=== PATIENT | female | born 1970 ===

== ENCOUNTER 2016-11-26 09:34 | Day surgery (SDC) | payer OTHER ==
[2016-11-26] MEDS ORDERED: Lactated Ringer's 500 ML IV ONE (10:37)
[2016-11-26 10:53] VITALS: O2SAT 100
[2016-11-26] MEDS ORDERED: Propofol 10 mg/ml Inj (20 ML) ONE (11:17)
[2016-11-26 12:01] VITALS: TEMP 97
[2016-11-26 12:07] VITALS: BP 118/67; PULSE 72; RESP 14
== END 2016-11-26 13:12 | disposition home or self-care (01) ==
LOC: H.ENDO 09:34
PROVIDERS: ATTEND Internal Medicine Gastroenterology
DX: K27.7 Chronic peptic ulcer, site unspecified, without hemorrhage or perforation (principal); Z87.19 Personal history of other diseases of the digestive system; D64.9 Anemia, unspecified; K31.9 Disease of stomach and duodenum, unspecified

== ENCOUNTER 2017-03-01 12:07 | Emergency (ER) | payer SELFPAY ==
[2017-03-01 12:29] VITALS: BP 106/70; PULSE 82; RESP 16; TEMP 98.2; O2SAT 99
--- NOTE | 2017-03-01 12:57 | ED PDOC ---
HPI: CCC, URI, Sore Throat Time Seen by Provider: 03/01/17 12:37 Chief Complaint (Nursing): Cough, Cold, Congestion Chief Complaint (Provider): cough, cold, congestion History Per: Patient History/Exam Limitations: no limitations Have you had recent travel within the past 21 days to any of the following countries: [place], [place], [place] or [place]?: No Onset/Duration Of Symptoms: Days (5) Current Symptoms Are (Timing): Still Present Location Of Pain: Throat. denies: Diffuse Myalgias Associated Symptoms: Sore Throat, Cough, Other (chest discomfort). denies: Fever, Chills, Sputum Severity: Moderate Additional History Per: Patient Additional Complaint(s): The patient is a 46yo female, PMHx of gastritis, cholecystectomy, presents to the ED for evaluation of cough, cold and congestion with associated chest discomfort present for the past 5 days. The pt reports her cough was productive with yellow sputum but is dry right now. She denies any fever, chills, bodyaches , known sick contacts or recent travels. Pt denies any other medical complaints. Past Medical History Reviewed: Historical Data, Nursing Documentation, Vital Signs Vital Signs: Last Vital Signs Temp 98.2 F 03/01/17 12:27 Pulse 82 03/01/17 12:27 Resp 16 03/01/17 12:27 BP 106/70 03/01/17 12:27 Pulse Ox 99 03/01/17 13:42 - Medical History PMH: Anemia Denies: Chronic Kidney Disease - Surgical History Surgical History: Cholecystectomy, Endoscopy, - Family History Family History: States: Unknown Family Hx - Living Arrangements Living Arrangements: With Family - Social History Current smoker - smoking cessation education provided: No Alcohol: None Drugs: Denies - Home Medications Home Medications: Ambulatory Orders Medication Instructions Recorded Omeprazole 20 mg PO DAILY 11/26/16 Benzonatate [Tessalon Perles] 100 mg PO BID #20 sgl 03/01/17 Guaifenesin [Mucinex] 1,200 mg PO BID #14 ter 03/01/17 - Allergies Allergies/Adverse Reactions: Allergies Allergy/AdvReac Type Severity Reaction Status Date / Time No Known Allergies Allergy Verified 03/01/17 12:27 Review of Systems ROS Statement: Except As Marked, All Systems Reviewed And Found Negative Constitutional: Negative for: Fever, Chills, Other (bodyaches) ENT: Positive for: Throat Pain Cardiovascular: Positive for: Other (chest discomfort) Respiratory: Positive for: Cough. Negative for: Sputum Physical Exam - Reviewed Nursing Documentation Reviewed: Yes Vital Signs Reviewed: Yes - Physical Exam Appears: Positive for: Well, Non-toxic, No Acute Distress Head Exam: Positive for: ATRAUMATIC, NORMAL INSPECTION, NORMOCEPHALIC Skin: Positive for: Normal Color, Warm, DRY Eye Exam: Positive for: Normal appearance ENT: Positive for: Normal ENT Inspection, TM Is/Are (normal b/l). Negative for : Pharyngeal Erythema, Tonsillar Exudate, Tonsillar Swelling Neck: Positive for: Normal, Supple Cardiovascular/Chest: Positive for: Regular Rate, Rhythm Respiratory: Positive for: Decreased Breath Sounds (mild decreased breath sounds right lung) Gastrointestinal/Abdominal: Positive for: Normal Exam Extremity: Positive for: Normal ROM. Negative for: Deformity, Swelling Neurologic/Psych: Positive for: Alert, Oriented - ECG O2 Sat by Pulse Oximetry: 99 (RA) Pulse Ox Interpretation: Normal - Radiology X-Ray: Interpreted by Me X-Ray Interpretation: No Acute Disease Medical Decision Making Medical Decision Making: Time: 1245 Impression: Cough/URI likely viral Plan: -- CXR -- Reassess pt will be d/c on mucinex, tessalon perles and advised to have pmd f/u with supportive care. VS stable, pt well appearing. Scribe Attestation: Documented by Regina Lucio acting as a scribe for DEBBI Guy Provider Attestation: All medical record entries made by the Scribe were at my direction and personally dictated by me. I have reviewed the chart and agree that the record accurately reflects my personal performance of the history, physical exam, medical decision making, and the department course for this patient. I have also personally directed, reviewed, and agree with the discharge instructions and disposition. Disposition - Clinical Impression Clinical Impression: Common cold, Chest congestion - Patient ED Disposition Is Patient to be Admitted: No Counseled Patient/Family Regarding: Studies Performed, Diagnosis, Need For Followup, Rx Given - Disposition Referrals: [facility] [Outside] Disposition: Routine/Home Disposition Time: 13:41 Condition: STABLE Prescriptions: Benzonatate [Tessalon Perles] 100 mg PO BID #20 sgl Guaifenesin [Mucinex] 1,200 mg PO BID #14 ter Instructions: Upper Respiratory Infection (ED) Print Language: NEPALI
--- NOTE | 2017-03-01 18:09 | RAD ---
HISTORY: cough COMPARISON: Comparison chest dated 09/16/2016 TECHNIQUE: Chest PA and lateral FINDINGS: LUNGS: No focal consolidation. Slightly increased coarse interstitial markings ; rule out sequela of reactive/ inflammatory airway disease or viral illness. PLEURA: No significant pleural effusion identified. No pneumothorax apparent. CARDIOVASCULAR: Normal. OSSEOUS STRUCTURES: Mild scoliotic deformity of the lower thoracic and upper lumbar regions. VISUALIZED UPPER ABDOMEN: Status post cholecystectomy with metallic devin surgical clips right upper quadrant of the abdomen. OTHER FINDINGS: None. IMPRESSION: No focal consolidation. Slightly increased coarse interstitial markings ; rule out sequela of reactive/ inflammatory airway disease or viral illness.
== END 2017-03-01 14:08 | disposition home or self-care (01) ==
LOC: H.ER 12:07
DX: R09.89 Other specified symptoms and signs involving the circulatory and respiratory systems (principal); J00 Acute nasopharyngitis [common cold]; J02.9 Acute pharyngitis, unspecified

== ENCOUNTER 2017-04-09 10:51 | Emergency (ER) | payer SELFPAY ==
[2017-04-09 10:57] VITALS: BP 114/70; PULSE 78; TEMP 97; O2SAT 99
[2017-04-09 10:58] VITALS: BMI 23.1
--- NOTE | 2017-04-09 11:52 | ED PDOC ---
HPI: General Adult Time Seen by Provider: 04/09/17 11:35 Chief Complaint (Nursing): Female Genitourinary History Per: Patient Additional Complaint(s): Pt. for the past 3 days she's had dysuria, suprapubic pain, and urinary frequency. Denies fever, N/V, flank pain, back pain. Past Medical History Vital Signs: Last Vital Signs Temp 97 F L 04/09/17 10:55 Pulse 78 04/09/17 10:55 Resp BP 114/70 04/09/17 10:55 Pulse Ox 99 04/09/17 11:52 - Medical History PMH: Anemia Denies: Chronic Kidney Disease - Surgical History Surgical History: Cholecystectomy, Endoscopy, - Family History Family History: States: Unknown Family Hx - Home Medications Home Medications: Ambulatory Orders Medication Instructions Recorded Omeprazole 20 mg PO DAILY 11/26/16 Benzonatate [Tessalon Perles] 100 mg PO BID #20 sgl 03/01/17 Guaifenesin [Mucinex] 1,200 mg PO BID #14 ter 03/01/17 Nitrofurantoin Macrocrystals 100 mg PO BID #14 cap 04/09/17 [Macrobid] - Allergies Allergies/Adverse Reactions: Allergies Allergy/AdvReac Type Severity Reaction Status Date / Time No Known Allergies Allergy Verified 04/09/17 11:33 Review of Systems ROS Statement: Except As Marked, All Systems Reviewed And Found Negative Genitourinary Female: Positive for: Dysuria, Frequency Physical Exam - Physical Exam Appears: Positive for: Well, Non-toxic, No Acute Distress Skin: Positive for: Normal Color, Warm. Negative for: Rash Gastrointestinal/Abdominal: Positive for: Normal Exam, Bowel Sounds, Soft. Negative for: Tenderness Back: Positive for: Normal Inspection. Negative for: L CVA Tenderness, R CVA Tenderness Neurologic/Psych: Positive for: Alert, Oriented - Laboratory Results Urine POC: Negative Urine dip results: Positive for: Leukocyte Esterase (small), Blood (large). Negative for: Nitrate, Ketones, Glucose, Bilirubin, Protein - ECG O2 Sat by Pulse Oximetry: 99 Disposition - Clinical Impression Clinical Impression: Urinary tract infection - Patient ED Disposition Is Patient to be Admitted: No - Disposition Referrals: [facility] [Outside] Disposition: Routine/Home Disposition Time: 12:04 Condition: STABLE Prescriptions: Nitrofurantoin Macrocrystals [Macrobid] 100 mg PO BID #14 cap Instructions: Urinary Tract Infection in Women (ED) Forms: [facility] (Bots[place]an) Print Language: [place]
== END 2017-04-09 14:00 | disposition home or self-care (01) ==
LOC: H.ER 10:51
DX: N39.0 Urinary tract infection, site not specified (principal)

== ENCOUNTER 2017-04-15 22:27 | Inpatient (IN) | payer SELFPAY ==
[2017-04-15 22:27] VITALS: BMI 23.1
[2017-04-15] MEDS ORDERED: Sodium Chloride 0.9% 1,000 ML IV STA (23:19)
[2017-04-15 23:51] LABS: BASO # 0.1 K/uL (0.0-0.2); BASO % 1.2 % (0.0-2.0); EOS # 0.2 K/uL (0.0-0.7); EOS % 2.6 % (0.0-4.0); LYMPH # 2.3 K/uL (1.0-4.3); LYMPH % 36.3 % (20.0-40.0); MEAN CORPUSCULAR HEMOGLOBIN 27.5 pg (27.0-31.0); MEAN CORPUSCULAR HGB CONC 33.2 g/dL (33.0-37.0); MEAN PLATELET VOLUME 7.8 fl (7.2-11.7); MONO # 0.6 K/uL (0.0-0.8); MONO % 9.4 % (0.0-10.0); NEUT # 3.2 K/uL (1.8-7.0); NEUT % 50.5 % (50.0-75.0); RBC 3.98 Mil/uL (3.80-5.20); RED CELL DISTRIBUTION WIDTH 14.7 % (11.5-14.5); WHITE BLOOD COUNT 6.3 K/uL (4.8-10.8)
--- NOTE | 2017-04-15 23:53 | ED PDOC ---
HPI: Abdomen Time Seen by Provider: 04/15/17 23:00 Chief Complaint (Nursing): Female Genitourinary Chief Complaint (Provider): Female Genitourinary History Per: Patient History/Exam Limitations: no limitations Onset/Duration Of Symptoms: Days Outside of [place] travel?: No Current Symptoms Are (Timing): Still Present Severity: Mild Location Of Pain/Discomfort: RLQ Associated Symptoms: denies: Fever, Nausea, Vomiting, Diarrhea, Constipation Additional Complaint(s): 46 y/o female patient presenting to the ED with lower abdominal pain. Patient was seen here in the ED a few days ago for dysuria and pain; was diagnosed with a UTI and sent home with Macrobid. The patient reports her last dosage is tomorrow but states she has been having constant lower abdominal pain. She reports the dysuria has resolved, no hematuria or menses, no fever, vomiting, nausea, constipation or diarrhea. Her past surgical history includes a caesarean and a cholecystectomy. Past Medical History Reviewed: Historical Data, Nursing Documentation, Vital Signs Vital Signs: Last Vital Signs Temp 97.8 F 04/15/17 22:52 Pulse 70 04/15/17 22:52 Resp 16 04/15/17 22:52 BP 129/80 04/15/17 22:52 Pulse Ox 99 04/16/17 00:07 - Medical History PMH: Anemia Denies: Chronic Kidney Disease - Surgical History Surgical History: Cholecystectomy, Endoscopy, - Family History Family History: States: Unknown Family Hx - Home Medications Home Medications: Ambulatory Orders Medication Instructions Recorded Omeprazole 20 mg PO DAILY 11/26/16 Benzonatate [Tessalon Perles] 100 mg PO BID #20 sgl 03/01/17 Guaifenesin [Mucinex] 1,200 mg PO BID #14 ter 03/01/17 Nitrofurantoin Macrocrystals 100 mg PO BID #14 cap 04/09/17 [Macrobid] - Allergies Allergies/Adverse Reactions: Allergies Allergy/AdvReac Type Severity Reaction Status Date / Time No Known Allergies Allergy Verified 04/09/17 11:33 Review of Systems ROS Statement: Except As Marked, All Systems Reviewed And Found Negative Constitutional: Negative for: Fever Gastrointestinal: Positive for: Abdominal Pain ((+)Constant ), Other ((-)Menses) . Negative for: Nausea, Vomiting, Diarrhea, Constipation Genitourinary Female: Negative for: Dysuria (Resolved), Hematuria Physical Exam - Reviewed Nursing Documentation Reviewed: Yes Vital Signs Reviewed: Yes - Physical Exam Appears: Positive for: Non-toxic, No Acute Distress Head Exam: Positive for: ATRAUMATIC, NORMAL INSPECTION, NORMOCEPHALIC Skin: Positive for: Normal Color, Warm, Dry Neck: Positive for: Normal, Painless ROM, Supple Cardiovascular/Chest: Positive for: Regular Rate, Rhythm. Negative for: Murmur Respiratory: Positive for: Normal Breath Sounds. Negative for: Respiratory Distress Gastrointestinal/Abdominal: Positive for: Tenderness ((+)RLQ Tenderness) Extremity: Positive for: Normal ROM Neurologic/Psych: Positive for: Alert, Oriented. Negative for: Motor/Sensory Deficits - Laboratory Results Result Diagrams: 04/15/17 23:48 04/15/17 23:48 Urine POC: Negative Urine dip results: Positive for: Blood (Moderate). Negative for: Leukocyte Esterase, Nitrate, Ketones, Glucose, Bilirubin, Protein - ECG O2 Sat by Pulse Oximetry: 99 (RA) Pulse Ox Interpretation: Normal Medical Decision Making Medical Decision Making: Time: 2315 Initial impression: Initial plan: --ABD & PELVIS IV --CMP --ED URINE DIPSTICK --ED URINE --MORPHINE 2MG IV --SODIUM CHLORIDE 1,000 ML IV --URINALYSIS --PELVIS/TRANSVAG Ultrasound Scribe Attestation: Documented by Valeria Ibarra, acting as a scribe for Carmencita Medina MD. Scribe Attestation: All medical record entries made by the Scribe were at my direction and personally dictated by me. I have reviewed the chart and agree that the record accurately reflects my personal performance of the history, physical exam, medical decision making, and the department course for this patient. I have also personally directed, reviewed, and agree with the discharge instructions and disposition. Disposition - Disposition Forms: [employer] (Libyan)
[2017-04-15 23:56] LABS: SQUAMOUS EPITHIAL 2 /hpf (0-5); URINE BILIRUBIN NEGATIVE (NEGATIVE); URINE BLOOD MODERATE (NEGATIVE); URINE CLARITY SLIGHTY-CLOUDY (Clear); URINE COLOR YELLOW (YELLOW); URINE GLUCOSE (UA) NEG (Normal); URINE LEUKOCYTE ESTERASE NEG Leu/uL (Negative); URINE NITRATE NEGATIVE (NEGATIVE); URINE PROTEIN NEGATIVE (NEGATIVE); URINE UROBILINOGEN 0.2-1.0 mg/dL (0.2-1.0)
[2017-04-16 00:02] LABS: ALB/GLOB RATIO 1.2 (1.0-2.1); ALBUMIN 4.2 g/dL (3.5-5.0); ALT/SGPT 24 U/L (9-52); AST/SGOT 24 U/L (14-36); BLOOD UREA NITROGEN 13 mg/dl (7-17); CALCIUM 9.3 mg/dL (8.4-10.2); GFR AFRICAN-AMERICAN > 60; GFR NON-AFRICAN AMERICAN > 60
--- NOTE | 2017-04-16 00:21 | ED PDOC ---
- Laboratory Results Result Diagrams: 04/15/17 23:48 04/15/17 23:48 Urine POC: Negative - ECG O2 Sat by Pulse Oximetry: 99 (RA) Pulse Ox Interpretation: Normal Medical Decision Making Medical Decision Making: Time: 0000 Initial plan: --Patient signed out to me by Dr. Medina. Pending CT Scan. --0124: EXAM: CT Abdomen and Pelvis With Intravenous Contrast CLINICAL HISTORY: 46 years old, female; Pain; Abdominal pain; Localized; Right lower quadrant (rlq ); Prior surgery; Surgery date: 6+ months; Surgery type: Cholecystectomy. C- section; Additional info: Rlq pain TECHNIQUE: Axial computed tomography images of the abdomen and pelvis with intravenous contrast. This CT exam was performed using one or more of the following dose reduction techniques: automated exposure control, adjustment of the mA and/or kV according to patient size, and/or use of iterative reconstruction technique. Coronal and sagittal reformatted images were created and reviewed. CONTRAST: 90 mL of [id number] administered intravenously. COMPARISON: No relevant prior studies available. Reference is made to a transvaginal ultrasound performed 09/26/16 FINDINGS: Lower thorax: The bilateral lung bases are clear. ABDOMEN: Liver: No acute findings. Gallbladder and bile ducts: The gallbladder is decompressed. No calcified stones. No significant intra- or extrahepatic biliary ductal dilation. Pancreas: Enhances homogeneously. No ductal dilation. No discrete mass. Spleen: No acute findings. Adrenals: No acute findings. Kidneys and ureters: Right sided hydroureteronephrosis extending to the distal right ureter where a 6mm stone is identified. No abnormalities detected within the left kidney. PELVIS: Bladder: No acute findings. Reproductive: Decreased attenuation within the lower uterine segment possibly representing a submucosal fibroid. This is an interval change from ultrasound examination performed 09/26/2016. Appendix: The air filled appendix is of normal caliber (series 2, image 56). ABDOMEN and PELVIS: Stomach and bowel: No obstruction. No mucosal thickening. Peritoneum: No significant fluid collection. No free air. Lymph nodes: No pathologically enlarged lymph nodes. Vasculature: Unremarkable. Bones: No acute fracture. IMPRESSION: Right sided hydroureteronephrosis secondary to a 6 mm stone in the distal right ureter. --[id number]: Patient has persistent pain; given history of recent UTI. CT shows 6mm calculus findings of right-sided hydroureteronephrosis obstructive renall calculus. --Case discussed with Dr. Hong resident home economics expert. Scribe Attestation: Documented by Valeria Ibarra, acting as a scribe for Barrington Ackerman MD. Scribe Attestation: All medical record entries made by the Scribe were at my direction and personally dictated by me. I have reviewed the chart and agree that the record accurately reflects my personal performance of the history, physical exam, medical decision making, and the department course for this patient. I have also personally directed, reviewed, and agree with the discharge instructions and disposition. Disposition - Clinical Impression Clinical Impression: Pyelonephritis, Hydronephrosis, Ureteral calculus - POA Present On Arrival: None - Disposition Disposition: Admitted as In-Patient Disposition Time: 02:00
[2017-04-16] MEDS ORDERED: Iohexol 300 100 ML IJ ONE (00:27)
[2017-04-16] MEDS ORDERED: Sodium Chloride 0.9% 50 ML IV ONE (00:27)
--- NOTE | 2017-04-16 01:24 | CT ---
EXAM: CT Abdomen and Pelvis With Intravenous Contrast CLINICAL HISTORY: 46 years old, female; Pain; Abdominal pain; Localized; Right lower quadrant (rlq); Prior surgery; Surgery date: 6+ months; Surgery type: Cholecystectomy. ; Additional info: Rlq pain TECHNIQUE: Axial computed tomography images of the abdomen and pelvis with intravenous contrast. This CT exam was performed using one or more of the following dose reduction techniques: automated exposure control, adjustment of the mA and/or kV according to patient size, and/or use of iterative reconstruction technique. Coronal and sagittal reformatted images were created and reviewed. CONTRAST: 90 mL of [id number] administered intravenously. COMPARISON: No relevant prior studies available. Reference is made to a transvaginal ultrasound performed 09/26/16 FINDINGS: Lower thorax: The bilateral lung bases are clear. ABDOMEN: Liver: No acute findings. Gallbladder and bile ducts: The gallbladder is decompressed. No calcified stones. No significant intra- or extrahepatic biliary ductal dilation. Pancreas: Enhances homogeneously. No ductal dilation. No discrete mass. Spleen: No acute findings. Adrenals: No acute findings. Kidneys and ureters: Right sided hydroureteronephrosis extending to the distal right ureter where a 6 mm stone is identified. No abnormalities detected within the left kidney. PELVIS: Bladder: No acute findings. Reproductive: Decreased attenuation within the lower uterine segment possibly representing a submucosal fibroid. This is an interval change from ultrasound examination performed 09/26/2016. Appendix: The air filled appendix is of normal caliber (series 2, image 56). ABDOMEN and PELVIS: Stomach and bowel: No obstruction. No mucosal thickening. Peritoneum: No significant fluid collection. No free air. Lymph nodes: No pathologically enlarged lymph nodes. Vasculature: Unremarkable. Bones: No acute fracture. IMPRESSION: Right sided hydroureteronephrosis secondary to a 6 mm stone in the distal right ureter.
[2017-04-16] MEDS ORDERED: cefTRIAXone (Rocephin) 1 gm Inj ONE (02:51)
--- NOTE | 2017-04-16 03:31 | CP.PCM.HP ---
History of Present Illness - History of Present Illness History of Present Illness: 46 y/o F with PMH including peptic ulcer disease presents with a 1 week history of right flank pain. Patient was initially evaluated in ED 1 week ago and was prescribed empiric macrobid for presumed UTI. Since then, patient has reported persistent intermittent right sided flank pain which radiates to the groin, is "pressure" like in quality, 4-8/10 intensity and aggravated by movement. Patient has completed 7 days of macrobid and has been taking 200mg-400mg of motrin with no improvement. She decided to present to ED today due to poorly controlled pain and new onset nausea. CT abdomen performed in ED detected a 6mm stone in the right ureter. Patient denies fevers, chills, chest pain, sob, vomiting, diarrhea, dysuria, urinary urgency/frequency or dysmenorrhea. PMD: Dr Friedman, 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 Hx: Regular monthly menstrual period lasting 6-7 days, LMP: currently on day 6-7 Present on Admission - Present on Admission Any Indicators Present on Admission: No History of DVT/PE: No History of Uncontrolled Diabetes: No Urinary Catheter: No Decubitus Ulcer Present: No Review of Systems - Review of Systems All systems: reviewed and no additional remarkable complaints except Past Patient History - Past Medical History & Family History Past Medical History?: Yes - Past Social History Smoking Status: Never Smoked Alcohol: None Drugs: Denies Home Situation {Lives}: With Family - CARDIAC Hx Cardiac Disorders: No - PULMONARY Hx Respiratory Disorders: No - NEUROLOGICAL Hx Neurological Disorder: No - HEENT Hx HEENT Problems: No - RENAL Hx Chronic Kidney Disease: No - ENDOCRINE/METABOLIC Hx Endocrine Disorders: No - HEMATOLOGICAL/ONCOLOGICAL Hx Anemia: Yes - INTEGUMENTARY Hx Dermatological Problems: No - MUSCULOSKELETAL/RHEUMATOLOGICAL Hx Musculoskeletal Disorders: No - GASTROINTESTINAL Hx Gastrointestinal Disorders: Yes (PUD) - GENITOURINARY/GYNECOLOGICAL Hx Genitourinary Disorders: No - PSYCHIATRIC Hx Psychophysiologic Disorder: No Hx Emotional Abuse: No Hx Physical Abuse: No Hx Substance Use: No - SURGICAL HISTORY Hx Cholecystectomy: Yes (2012) - ANESTHESIA Hx Anesthesia: Yes Hx Anesthesia Reactions: No Hx Malignant Hyperthermia: No Meds Allergies/Adverse Reactions: Allergies Allergy/AdvReac Type Severity Reaction Status Date / Time No Known Allergies Allergy Verified 04/09/17 11:33 Physical Exam - Constitutional Appears: Non-toxic, No Acute Distress - Head Exam Head Exam: ATRAUMATIC, NORMAL INSPECTION, NORMOCEPHALIC - Eye Exam Eye Exam: EOMI, PERRL - ENT Exam ENT Exam: Mucous Membranes Moist - Respiratory Exam Respiratory Exam: Clear to Auscultation Bilateral, NORMAL BREATHING PATTERN. absent: Rales, Rhonchi, Wheezes, Respiratory Distress - Cardiovascular Exam Cardiovascular Exam: REGULAR RHYTHM, RRR, +S1, +S2. absent: Systolic Murmur - GI/Abdominal Exam GI & Abdominal Exam: Normal Bowel Sounds, Soft, Tenderness (right flank/RLQ tenderness). absent: Distended, Guarding, Rebound - Extremities Exam Extremities exam: Positive for: normal capillary refill. Negative for: calf tenderness, pedal edema - Back Exam Back exam: absent: CVA tenderness (L), CVA tenderness (R) - Neurological Exam Neurological exam: Alert, CN II-XII Intact, Oriented x3 - Psychiatric Exam Psychiatric exam: Normal Affect, Normal Mood - Skin Skin Exam: Dry, Warm Results - Vital Signs Recent Vital Signs: Last Vital Signs Temp 97.8 F 04/15/17 22:52 Pulse 70 04/15/17 22:52 Resp 16 04/15/17 22:52 BP 129/80 04/15/17 22:52 Pulse Ox 99 04/16/17 03:05 - Labs Result Diagrams: 04/15/17 23:48 04/15/17 23:48 Assessment & Plan - Assessment and Plan (Free Text) Assessment: 46 y/o F with PMH including peptic ulcer disease presented to ED with a 1 week history of right flank pain. CT Abdomen detected a 6mm stone in the distal right ureter associated with hydroureteronephrosis. Plan: Right-sided flank pain -Etiology likely secondary to ureterolithiasis. -CT Abdomen detected a 6mm stone in the distal right ureter associated with hydroureteronephrosis. No signs of appendicitis noted. -Received single dose of ceftriaxone in ED -Patient afebrile. WBC WNL. -Toradol 10mg IV and morphine 2mg IV given in ED for pain control -Tamsulosin 0.8mg PO given in ED -UA detects moderate blood with no nitrites or leuk esterace -Urine culture ordered -Patient continues to experience pain, so will be admitted for pain control and further monitoring -Frankan 4mg IV Q6h PRN nausea -Toradol 30mg IV Q6h PRN mod pain -Morphine 2mg IV Q4h PRN sev pain -Medical expulsive therapy with tamsulosin 0.4mg PO daily -Strain urine for calculi Peptic ulcer disease -Patient currently asymptomatic -Taking omeprazole 20mg daily DVT Prophylaxis -SCDs for now
[2017-04-16 07:49] VITALS: RESP 20
--- NOTE | 2017-04-16 08:43 | CP.PCM.PN ---
Subjective - Date & Time of Evaluation Date of Evaluation: 04/16/17 Time of Evaluation: 06:30 - Subjective Subjective: Patient seen and examined at the bedside. States that she had severe abdominal pain last night which resolved shortly after receiving pain medication. At the moment, she currently is not complaining of abdominal pain. She denies fever, chills, burning with urination, frequent urination, flank pain, N/V/Diarrhea. Objective - Vital Signs/Intake and Output Vital Signs (last 24 hours): Temp Pulse Resp BP Pulse Ox 97.7 F 71 20 105/61 98 04/16/17 07:49 04/16/17 07:49 04/16/17 07:49 04/16/17 07:49 04/16/17 07:49 - Medications Medications: Current Medications Ketorolac Tromethamine (Toradol) 30 mg IVP Q6 PRN PRN Reason: Pain, moderate (4-7) Morphine Sulfate (Morphine) 2 mg IVP Q4 PRN PRN Reason: Pain, severe (8-10) Ondansetron HCl (Zofran Inj) 4 mg IVP Q6 PRN PRN Reason: Nausea/Vomiting Last Admin: 04/16/17 03:57 Dose: 4 mg Pantoprazole Sodium (Protonix Ec Tab) 40 mg PO DAILY HANK Tamsulosin HCl (Flomax) 0.4 mg PO DAILY HANK - Constitutional Appears: Well - ENT Exam ENT Exam: Mucous Membranes Moist - Respiratory Exam Respiratory Exam: Clear to Ausculation Bilateral. absent: Rales, Wheezes - Cardiovascular Exam Cardiovascular Exam: REGULAR RHYTHM, +S1, +S2. absent: Murmur - GI/Abdominal Exam GI & Abdominal Exam: Soft, Tenderness Additional comments: Tender to palpation in lower quadrants. Normal bowel sounds. Soft, nontender, nondistended. No sings of organomegaly. No gaurding, rigidity, or rebound tenderness. Lamar's -, No CVA - Extremities Exam Extremities Exam: absent: Pedal Edema - Back Exam Back Exam: absent: CVA tenderness (R) - Neurological Exam Neurological Exam: Alert, Awake, Oriented x3 - Psychiatric Exam Psychiatric exam: Normal Affect Assessment and Plan (1) Ureteral calculus Status: Acute - Assessment and Plan (Free Text) Assessment: Assessment: 46 y/o F with PMH including peptic ulcer disease presented to ED with a 1 week history of right flank pain. CT Abdomen detected a 6mm stone in the distal right ureter associated with hydroureteronephrosis. Plan: Right-sided flank pain -Etiology likely secondary to ureterolithiasis. -CT Abdomen detected a 6mm stone in the distal right ureter associated with hydroureteronephrosis. No signs of appendicitis noted. -Received single dose of ceftriaxone in ED -Patient afebrile. WBC WNL. -Tamsulosin 0.8mg PO given in ED -Electrolytes stable -UA detects moderate blood with no nitrites or leuk esterace. Pt is currently menstruating. UA from 09/24 also + for blood. Consider OP wrkp -Labs Ordered: UCx, Calcium, Ulytes, Uric Acid, Urine Calcium -Tamsulosin 0.4mg PO Daily for Medical expulsive therapy -Zofran 4mg IV Q6h PRN nausea -Toradol 30mg IV Q6h PRN mod pain -Morphine 2mg IV Q4h PRN sev pain -Strain urine for calculi -Urology consultation placed Plan: F/U UCx, KUB, Urology consult. Continue hydrating, medical expulsive therapy and current pain management. Encourage patient to drink fluids Peptic ulcer disease -Patient currently asymptomatic -Taking omeprazole 20mg daily DVT Prophylaxis -SCDs for now
[2017-04-16] MEDS: Pantoprazole 40 mg EC Tab PO SCH (08:50)
[2017-04-16 11:15] LABS: CALCIUM 8.6 mg/dL (8.4-10.2)
[2017-04-16] MEDS: Sodium Chloride 0.9% 1,000 ML IV SCH ×3 (12:32→22:36)
[2017-04-16 16:12] LABS: URINE CALCIUM 15.5 mg/dL
--- NOTE | 2017-04-16 16:15 | RAD ---
HISTORY: Nephrolithiasis COMPARISON: No prior. FINDINGS: BOWEL: Normal. No obstruction. No free air. BONES: Normal. OTHER FINDINGS: None. IMPRESSION: No significant or acute findings to account for/ related to the clinical presentation. Limitations of the current examination: Bowel gas overlies the expected location of both kidneys. No definite upper tract calculi identified.
--- NOTE | 2017-04-16 17:13 | US ---
HISTORY: RLQ pain COMPARISON: Transvaginal pelvic ultrasound performed 09/26/16 TECHNIQUE: Real-time transabdominal pelvic ultrasound was performed. In addition a transvaginal pelvic ultrasound was necessary to better depict pelvic anatomy. FINDINGS: UTERUS: Measures 10.1 x 4.4 x 6.4 cm. Retroverted. ENDOMETRIUM: Measures 5 mm in diameter. CERVIX: No cervical abnormality identified. RIGHT OVARY: Measures 2.0 x 1.8 x 1.7 cm. Blood flow is demonstrated. Follicles. LEFT OVARY: Measures 2.8 x 1.4 x 2.3 cm. Blood flow is demonstrated. Follicles. 4 mm echogenic focus within the left ovary, indeterminate, possibly small dermoid. FREE FLUID: No significant free fluid noted. OTHER FINDINGS: None. IMPRESSION: 4 mm echogenic focus within the left ovary, indeterminate, possibly small dermoid. Previously demonstrated echogenic endometrial foci suspected to reflect polyps are not appreciated on the current examination.
--- NOTE | 2017-04-16 20:52 | CON ---
COMPREHENSIVE UROLOGY CONSULTATION DATE: 04/16/2017 TIME OF CONSULTATION: Roughly 10:25 a.m. BRIEF HISTORY: The patient is a 46[facility] first episode of acute onset of right renal colic requiring her to come to [facility] Emergency Room. Abdominopelvic CT film showed a distal obstructing 6 mm right ureteral stone causing some hydronephrosis. The patient's pain is currently controlled on pain medication at this time. She denies any prior history of any kidney disease or kidney stone. PAST MEDICAL HISTORY: She also has no other past medical history. PAST SURGICAL HISTORY: Includes cholecystectomy and tubal ligation in the past. SOCIAL HISTORY: She has no history of any alcohol or tobacco use. ALLERGIES: SHE HAS NO KNOWN ALLERGIES TO ANY MEDICATIONS. PHYSICAL EXAMINATION GENERAL: Today, she is well-developed, well-nourished, female, currently resting comfortably. ABDOMEN: Soft, nondistended and nontender at this time. She has no CVA tenderness and no suprapubic tenderness on pain medication. HEENT: Grossly within normal limits. EXTREMITIES: She has full range of motion of both upper and lower extremities. No leg edema or calf tenderness present. LABORATORY DATA: On 04/15/2017 shows a WBC count of 6.3, hemoglobin of 11.0 and hematocrit of 33.1 with a platelet count of 256,000 indicating a mild anemia. Chemistry profile shows a sodium of 138, potassium 4.0, chloride 104, CO2 of 26, BUN and creatinine 13 and 0.6 respectively with a GFR greater than 60. Calcium is 9.3. AST is 24 and ALT is 24. Her urinalysis shows a color of yellow, slightly cloudy, pH is 7.0, specific gravity 1.010, protein is negative, glucose negative, ketones negative, blood moderate, nitrite negative, bilirubin negative, urobilinogen 0.2-1.0, leukocyte esterase negative with 2 rbc's and 4 wbc's per high-power field. The patient is currently on Flomax 0.4 mg daily to try to help with passage of the stone. On CT, the stone is 6 mm in length and seems to be smaller in the width. She is currently on 2 mg of morphine for control of her pain and seems to be tolerating this well. She is also on Rocephin 1 g IV piggyback and she also receive some Toradol 10 mg IV and 30 mg q.6 h. Her urine was sent for culture and sensitivity. DIAGNOSTIC IMPRESSION: 1. This patient has right renal colic. 2. Distal 6 mm right ureteral stone causing some hydronephrosis and possible right subclinical pyelonephritis. PLAN: The plan for this patient is to observe the patient at this time. If the pain is unable to controlled, the patient may need a cystoscopy with insertion of right ureteral stent, but the patient seems to want go home. At this time, she wants to know when she is going home and it seems like she wants to try to passed the stone on her own if possible and this will depend on her pain control. Robert Hood MD
[2017-04-16] MEDS ORDERED: Docusate-Senna 50 mg-8.6 mg Tab PO SCH (22:00)
[2017-04-17 08:13] VITALS: BP 116/69; PULSE 74; TEMP 97.8; O2SAT 98
[2017-04-17] MEDS: Pantoprazole 40 mg EC Tab PO SCH (08:31)
[2017-04-17] MEDS: Sodium Chloride 0.9% 1,000 ML IV SCH (11:36)
--- NOTE | 2017-04-17 15:47 | PN ---
DATE: 04/17/2017 TIME OF FOLLOWUP: Roughly 11:03 a.m. SUBJECTIVE: The patient is markedly improved today. She is currently pain free and wants to go home. PHYSICAL EXAMINATION: Her abdomen is soft, nondistended and nontender. No CVA tenderness, no suprapubic tenderness. She is currently afebrile. Her temperature is 97.8, pulse rate is 74, blood pressure is 116/69, and respiration rate is 20 and O2 saturation on room air is 98%. PLAN: The patient has been on IV Rocephin during this hospital and she can go home on Ceftin 500 mg b.i.d. for additional 10 days and Flomax 0.4 mg daily for at least two weeks and the patient advised to strain all her urine for stones and to consume and increased quantity of fluid intake plus lemonade. The patient will be seen in office followup in 2 weeks. Robert Hood MD
--- NOTE | 2017-04-17 17:20 | CP.PCM.DIS ---
Provider - Provider Date of Admission: 04/16/17 02:35 Attending physician: Georgette Hightower MD Time Spent in preparation of Discharge (in minutes): 35 Diagnosis - Discharge Diagnosis (1) Ureteral calculus Status: Acute Hospital Course - Lab Results Lab Results: Most Recent Lab Values WBC 6.3 K/uL (4.8-10.8) 04/15/17 23:48 RBC 3.98 Mil/uL (3.80-5.20) 04/15/17 23:48 Hgb 11.0 g/dL (12.0-16.0) L 04/15/17 23:48 Hct 33.1 % (34.0-47.0) L 04/15/17 23:48 MCV 83.0 fl (81.0-99.0) D 04/15/17 23:48 MCH 27.5 pg (27.0-31.0) 04/15/17 23:48 MCHC 33.2 g/dL (33.0-37.0) 04/15/17 23:48 RDW 14.7 % (11.5-14.5) H 04/15/17 23:48 Plt Count 256 K/uL (130-400) 04/15/17 23:48 MPV 7.8 fl (7.2-11.7) 04/15/17 23:48 Neut % (Auto) 50.5 % (50.0-75.0) 04/15/17 23:48 Lymph % (Auto) 36.3 % (20.0-40.0) 04/15/17 23:48 [place] % (Auto) 9.4 % (0.0-10.0) 04/15/17 23:48 Eos % (Auto) 2.6 % (0.0-4.0) 04/15/17 23:48 Baso % (Auto) 1.2 % (0.0-2.0) 04/15/17 23:48 Neut # 3.2 K/uL (1.8-7.0) 04/15/17 23:48 Lymph # 2.3 K/uL (1.0-4.3) 04/15/17 23:48 [place] # 0.6 K/uL (0.0-0.8) 04/15/17 23:48 Eos # 0.2 K/uL (0.0-0.7) 04/15/17 23:48 Baso # 0.1 K/uL (0.0-0.2) 04/15/17 23:48 Sodium 138 mmol/l (132-148) 04/15/17 23:48 Potassium 4.0 MMOL/L (3.6-5.0) 04/15/17 23:48 Chloride 104 mmol/L (98-107) 04/15/17 23:48 Carbon Dioxide 26 mmol/L (22-30) 04/15/17 23:48 Anion Gap 12 (10-20) 04/15/17 23:48 BUN 13 mg/dl (7-17) 04/15/17 23:48 Creatinine 0.6 mg/dL (0.7-1.2) L 04/15/17 23:48 Est GFR ( Amer) > 60 04/15/17 23:48 Est GFR (Non-Af Amer) > 60 04/15/17 23:48 Random Glucose 103 mg/dL (65-105) 04/15/17 23:48 Uric Acid 4.0 mg/Dl (2.2-7.5) 04/16/17 09:00 Calcium 8.6 mg/dL (8.4-10.2) 04/16/17 09:00 Total Bilirubin 0.6 mg/dl (0.2-1.3) 04/15/17 23:48 AST 24 U/L (14-36) 04/15/17 23:48 ALT 24 U/L (9-52) 04/15/17 23:48 Alkaline Phosphatase 72 U/L (38-126) 04/15/17 23:48 Total Protein 7.6 G/DL (6.3-8.2) 04/15/17 23:48 Albumin 4.2 g/dL (3.5-5.0) 04/15/17 23:48 Globulin 3.4 gm/dL (2.2-3.9) 04/15/17 23:48 Albumin/Globulin Ratio 1.2 (1.0-2.1) 04/15/17 23:48 Urine Color Yellow (YELLOW) 04/15/17 23:48 Urine Clarity Slighty-cloudy (Clear) 04/15/17 23:48 Urine pH 7.0 (5.0-8.0) 04/15/17 23:48 Ur Specific [place] 1.010 (1.003-1.030) 04/15/17 23:48 Urine Protein Negative mg/dL (NEGATIVE) 04/15/17 23:48 Urine Glucose (UA) Neg mg/dL (Normal) 04/15/17 23:48 Urine Ketones Negative mg/dL (NEGATIVE) 04/15/17 23:48 Urine Blood Moderate (NEGATIVE) 04/15/17 23:48 Urine Nitrate Negative (NEGATIVE) 04/15/17 23:48 Urine Bilirubin Negative (NEGATIVE) 04/15/17 23:48 Urine Urobilinogen 0.2-1.0 mg/dL (0.2-1.0) 04/15/17 23:48 Ur Leukocyte Esterase Neg [place]/uL (Negative) 04/15/17 23:48 Urine RBC (Auto) 2 /hpf (0-3) 04/15/17 23:48 Urine Microscopic WBC 4 /hpf (0-5) 04/15/17 23:48 Ur Squamous Epith Cells 2 /hpf (0-5) 04/15/17 23:48 Ur Random Sodium 41 meq/L 04/16/17 14:00 Ur Random Potassium 7.8 mmol/L 04/16/17 14:00 HIV-1 Ab Rapid Screen Non reactive (NON REAC) 04/16/17 11:00 - Hospital Course Hospital Course: Discharge Diagnosis: Nephrolithiasis Consults: Urology Procedures: None Complications: None Hospital Course: 46 y/o F with PMH including peptic ulcer disease presents with a 1 week history of right flank pain and was found to have a 6mm stone in the right distal ureter with hydroureteronephrosis. Urology was consulted and did not recommend any surgical intervention. She will follow up in the clinic on May [address] Hong. Patient encouraged to drink plenty of fluids and ER precautions were given. Discharge Medications: Tamsulosin 0.4mgPO Daily Ibuprofen 600mg prn for mild-moderate pain Tramadol 20mg prn for severe pain Discharge Plan: Condition Upon Discharge: Stable Activity: Ambulating without assistance Diet: Regular Next Appt: May [address] Hong Issues to be addressed at f/u appt: Resolution of Nephrolithiasis Discharge Exam - Head Exam Head Exam: ATRAUMATIC, NORMAL INSPECTION, NORMOCEPHALIC - ENT Exam ENT Exam: Mucous Membranes Moist - Respiratory Exam Respiratory Exam: Clear to PA & Lateral. absent: Rales, Wheezes, Respiratory Distress - Cardiovascular Exam Cardiovascular Exam: REGULAR RHYTHM, +S1, +S2 - GI/Abdominal Exam GI & Abdominal Exam: Normal Bowel Sounds, Soft, Tenderness. absent: Distended, Firm, Guarding, Organomegaly, Rebound, Rigid - Neurological Exam Neurological exam: Alert, Oriented x3 - Psychiatric Exam Psychiatric exam: Normal Affect Discharge Plan - Discharge Medications Prescriptions: Tamsulosin [Flomax] 0.4 mg PO DAILY #20 cap - Follow Up Plan Condition: STABLE Disposition: HOME/ ROUTINE Instructions: Ibuprofen (By mouth), Tramadol (By mouth), Acute Pyelonephritis ( DC), Ureteral Stones (DC) Additional Instructions: Keep Appointment on May [address] Hong [address] Referrals: [facility] [Outside] Janie Hong MD [Resident] -
== END 2017-04-17 14:38 | disposition home or self-care (01) | DRG 321 ==
LOC: H.ER 22:27 → H.ERHOLD 04-16 02:35 → H.MEDSURG1 04-16 05:12
PROVIDERS: ADMIT Family Medicine Geriatric Medicine; ATTEND Family Medicine Geriatric Medicine
DX: N13.6 Pyonephrosis (principal); K27.9 Peptic ulcer, site unspecified, unspecified as acute or chronic, without hemorrhage or perforation; Z90.49 Acquired absence of other specified parts of digestive tract

== ENCOUNTER 2017-05-07 09:54 | Inpatient (IN) | payer SELFPAY ==
[2017-05-07 09:57] VITALS: BMI 24.2
[2017-05-07] MEDS ORDERED: Sodium Chloride 0.9% 1,000 ML IV STA (10:15)
--- NOTE | 2017-05-07 10:16 | ED PDOC ---
HPI: Abdomen Time Seen by Provider: 05/07/17 10:06 Chief Complaint (Nursing): Abdominal Pain Chief Complaint (Provider): Abdominal Pain History Per: Patient History/Exam Limitations: no limitations Onset/Duration Of Symptoms: Hrs Current Symptoms Are (Timing): Still Present Additional Complaint(s): 46 y/o female with a past medical history of kidney stones who presents to the emergency department with a complaint of a sudden onset of a lower right-sided abdomen pain that began around 09:00 am. Describes the pain as if she feels like she is going to explode as well as numb throughout the body. Reports taking Motrin 600 mg around 08:30 am after experiencing some pain while urinating. Denies nausea, fever, blood in urine, or back pain. Of note, patient has been seen in this facility multiple times for similar symptoms. Past Medical History Reviewed: Historical Data, Nursing Documentation, Vital Signs Vital Signs: Last Vital Signs Temp 97.3 F L 05/07/17 09:56 Pulse 104 H 05/07/17 09:56 Resp 18 05/07/17 09:56 BP 139/84 05/07/17 09:56 Pulse Ox 100 05/07/17 12:22 - Medical History PMH: Anemia Denies: Chronic Kidney Disease - Surgical History Surgical History: Cholecystectomy, Endoscopy, - Family History Family History: States: Unknown Family Hx - Social History Current smoker - smoking cessation education provided: No Alcohol: None Drugs: Denies - Home Medications Home Medications: Ambulatory Orders Medication Instructions Recorded Tamsulosin [Flomax] 0.4 mg PO DAILY #20 cap 04/17/17 - Allergies Allergies/Adverse Reactions: Allergies Allergy/AdvReac Type Severity Reaction Status Date / Time No Known Allergies Allergy Verified 04/09/17 11:33 Review of Systems ROS Statement: Except As Marked, All Systems Reviewed And Found Negative Constitutional: Negative for: Fever Gastrointestinal: Positive for: Abdominal Pain. Negative for: Nausea Genitourinary Female: Negative for: Hematuria Musculoskeletal: Negative for: Back Pain Physical Exam - Reviewed Nursing Documentation Reviewed: Yes Vital Signs Reviewed: Yes - Physical Exam Appears: Positive for: Non-toxic Head Exam: Positive for: ATRAUMATIC, NORMAL INSPECTION, NORMOCEPHALIC Skin: Positive for: Normal Color, Warm, Dry Cardiovascular/Chest: Positive for: Regular Rate, Rhythm. Negative for: Murmur Respiratory: Positive for: Normal Breath Sounds. Negative for: Accessory Muscle Use, Respiratory Distress Gastrointestinal/Abdominal: Positive for: Soft, Tenderness (RLQ tenderness). Negative for: Normal Exam Neurologic/Psych: Positive for: Alert, Oriented (x3) - Laboratory Results Result Diagrams: 05/07/17 10:35 05/07/17 10:35 - ECG O2 Sat by Pulse Oximetry: 100 (RA) Pulse Ox Interpretation: Normal - Progress Re-evaluation Time: 12:00 Condition: Unchanged Medical Decision Making Medical Decision Making: Time: 10:15 Initial impression: Reoccurrence of nephrolithiasis Initial plan: --BMP --Urine DIP & Preg --CBC w/ diff --Morphine 2 mg --Urinalysis --Sodium Chloride 1L IV --Abdomen 1 View x-ray --Reevaluation Time: 1057 --Abdomen X-ray FINDINGS: BOWEL: No evidence of acute mechanical bowel obstruction. No gross free air seen on this limited supine view abdomen pelvis BONES: There is a mild to moderate dextroscoliosis centered at the L1-L2 level unchanged. OTHER FINDINGS: Re- demonstrated is an approximately 5.7 mm of triangular-shaped calculus overlying the right inferior true pelvis consistent with previously noted and described right UVJ calculus. Hazy opacity overlying the pelvis likely represents distended urinary bladder and at concomitant uterine silhouette. IMPRESSION: Right UVJ calculus again noted. See above discussion for additional details and findings. Time: 11:10 --Toradol 30 mg IV Scribe Attestation: Documented by Karine Owens, acting as a scribe for Chaya Earl MD. Provider Scribe Attestation: All medical record entries made by the Scribe were at my direction and personally dictated by me. I have reviewed the chart and agree that the record accurately reflects my personal performance of the history, physical exam, medical decision making, and the department course for this patient. I have also personally directed, reviewed, and agree with the discharge instructions and disposition. 12.00 patient is still in pain and x-rays shows persistent stone 5.5 Disposition - Clinical Impression Clinical Impression: Ureteral colic - Patient ED Disposition Is Patient to be Admitted: Yes Doctor Will See Patient In The: Hospital - Disposition Disposition: Transfer of Care Disposition Time: 12:10 Condition: GUARDED Forms: [facility] ([place]) - Pt Status Changed To: Hospital Disposition Of: Observation - POA Present On Arrival: None
[2017-05-07 10:53] LABS: BLOOD UREA NITROGEN 12 mg/dl (7-17); CALCIUM 9.8 mg/dL (8.4-10.2); CARBON DIOXIDE 17 mmol/L (22-30); CHLORIDE 105 mmol/L (98-107); GFR AFRICAN-AMERICAN > 60; GLUCOSE,RANDOM 93 mg/dL (65-105); POTASSIUM 3.7 MMOL/L (3.6-5.0); SODIUM 139 mmol/l (132-148)
[2017-05-07 10:54] LABS: RBC URINE 12 /hpf (0-3); URINE BACTERIA RARE (<OCC); URINE BILIRUBIN NEGATIVE (NEGATIVE); URINE BLOOD SMALL (NEGATIVE); URINE COLOR YELLOW (YELLOW); URINE GLUCOSE (UA) NEG (Normal); URINE KETONE TRACE mg/dL (NEGATIVE); URINE LEUKOCYTE ESTERASE LARGE Leu/uL (Negative); URINE PROTEIN NEGATIVE (NEGATIVE); URINE UROBILINOGEN 0.2-1.0 mg/dL (0.2-1.0); WBC URINE 18 /hpf (0-5)
[2017-05-07 10:57] LABS: BASO # 0.1 K/uL (0.0-0.2); BASO % 0.9 % (0.0-2.0); EOS % 0.5 % (0.0-4.0); HEMATOCRIT 37.9 % (34.0-47.0); LYMPH # 2.1 K/uL (1.0-4.3); LYMPH % 26.3 % (20.0-40.0); MEAN CELL VOLUME 80.6 fl (81.0-99.0); MEAN CORPUSCULAR HEMOGLOBIN 26.5 pg (27.0-31.0); MEAN CORPUSCULAR HGB CONC 32.9 g/dL (33.0-37.0); MEAN PLATELET VOLUME 8.4 fl (7.2-11.7); MONO # 0.7 K/uL (0.0-0.8); MONO % 8.9 % (0.0-10.0); NEUT % 63.4 % (50.0-75.0); NRBC % 0.2 % (0.0-0.0); WHITE BLOOD COUNT 7.9 K/uL (4.8-10.8)
--- NOTE | 2017-05-07 10:58 | RAD ---
HISTORY: h/o kidney stone 6-7mm recently COMPARISON: OpenNo prior. FINDINGS: BOWEL: No evidence of acute mechanical bowel obstruction. No gross free air seen on this limited supine view abdomen pelvis BONES: There is a mild to moderate dextroscoliosis centered at the L1-L2 level unchanged. OTHER FINDINGS: Re- demonstrated is an approximately 5.7 mm of triangular-shaped calculus overlying the right inferior true pelvis consistent with previously noted and described right UVJ calculus. Hazy opacity overlying the pelvis likely represents distended urinary bladder and at concomitant uterine silhouette. IMPRESSION: Right UVJ calculus again noted. See above discussion for additional details and findings.
--- NOTE | 2017-05-07 14:17 | CP.PCM.HP ---
<Volodymyr Jackson - Last Filed: 05/07/17 16:31> History of Present Illness - History of Present Illness History of Present Illness: 46 year old female presented to ED with 1 day history of right abdominal pain. with a 1 week history of right flank pain. Patient has reported persistent intermittent right sided flank pain which radiates to the groin, is "pressure" like in quality, 8/10 intensity and aggravated by movement/palpation. Patient has been taking 600mg of motrin and flomax with no improvement. Patient denies fevers, chills, chest pain, sob, vomiting, diarrhea, back pain, urinary urgency/ frequency or hematuria. Dysuria and nausea present. Patient was seen approx 3 weeks ago for the same. Urology evaluated patient, medical expulsive therapy recommended. Patient followed up with PCP during this time. No pain reported during interval until presentation. 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 ED Course: VS stable, except for mild tachycardia RLQ tenderness to palpation CBC, BMP, UA - notable for Blood and LE in UA Morphine, Toradol Sodium Chloride 1L IV Bolus KUB noted 5.7mm stone in the right ureter in ED. Present on Admission - Present on Admission Any Indicators Present on Admission: No Review of Systems - Review of Systems All systems: reviewed and no additional remarkable complaints except (mentioned in HPI) Past Patient History - Past Medical History & Family History Past Medical History?: Yes - Past Social History Alcohol: None Drugs: Denies - CARDIAC Hx Cardiac Disorders: No - PULMONARY Hx Respiratory Disorders: No - NEUROLOGICAL Hx Neurological Disorder: No - HEENT Hx HEENT Problems: No - RENAL Hx Chronic Kidney Disease: No - ENDOCRINE/METABOLIC Hx Endocrine Disorders: No - HEMATOLOGICAL/ONCOLOGICAL Hx Anemia: Yes - INTEGUMENTARY Hx Dermatological Problems: No - MUSCULOSKELETAL/RHEUMATOLOGICAL Hx Falls: No - GASTROINTESTINAL Hx Gastrointestinal Disorders: Yes (PUD) - GENITOURINARY/GYNECOLOGICAL Hx Genitourinary Disorders: No - PSYCHIATRIC Hx Psychophysiologic Disorder: No Hx Emotional Abuse: No Hx Physical Abuse: No Hx Substance Use: No - SURGICAL HISTORY Hx Cholecystectomy: Yes - ANESTHESIA Hx Anesthesia: Yes Hx Anesthesia Reactions: No Hx Malignant Hyperthermia: No Meds Allergies/Adverse Reactions: Allergies Allergy/AdvReac Type Severity Reaction Status Date / Time No Known Allergies Allergy Verified 04/09/17 11:33 Results - Vital Signs Recent Vital Signs: Last Vital Signs Temp 97.3 F L 05/07/17 09:56 Pulse 104 H 05/07/17 09:56 Resp 18 05/07/17 09:56 BP 139/84 05/07/17 09:56 Pulse Ox 100 05/07/17 12:35 - Labs Result Diagrams: 05/07/17 10:35 05/07/17 10:35 Assessment & Plan - Assessment and Plan (Free Text) Assessment: 46 year old female with history of ureteral calculus x 1 month with increased pain x 1 day admitted for right obstructive ureteral calculus. Plan: Ureteral Calculus -Previous CT Abdomen reviewed detected a 6mm stone in the distal right ureter associated with hydroureteronephrosis. No signs of appendicitis noted. (04/16/17) -KUB shows stone in right UVJ, consistent with previous KUB films -Patient afebrile. WBC WNL. -Toradol 10mg IV and morphine 2mg IV given in ED for pain control -Zofran 4mg IV Q6h PRN nausea -Toradol 30mg IV Q6h PRN mod pain -Morphine 2mg IV Q4h PRN sev pain -NS @ 100cc/hr -Liquid diet advance as tolerated -Medical expulsive therapy with tamsulosin 0.4mg PO daily -Strain urine for calculi -Urology consulted, appreciate recommendations Dysuria -No fever/chills -LE and blood positive in UA -Rocephin 1gram -Urine culture pending DVT Prophylaxis -SCDs for now <Radha Tamez - Last Filed: 05/09/17 09:17> Physical Exam - Skin Additional comments: ADDENDUM ATTENDING NOTE CHART REVIEWED. CASE DISCUSSED AT LENGTH WITH RESIDENT. PATIENT WITH URETERAL STONE 6MM PRESENT CLOSE TO ONE MONTH. WILL BE ADMITTED WITH UROLOGIST CONSULT. AGREE WITH FINDINGS AND PLAN. Results - Vital Signs Recent Vital Signs: Last Vital Signs Temp 97.8 F 05/09/17 08:51 Pulse 80 05/09/17 08:51 Resp 20 09/01/17 08:51 BP 115/64 05/09/17 08:51 Pulse Ox 99 05/09/17 08:51 - Labs Result Diagrams: 05/09/17 06:05 05/09/17 06:05 Labs: Laboratory Results - last 24 hr 05/09/17 05/09/17 06:05 06:05 WBC 6.0 RBC 3.80 Hgb 10.1 L Hct 31.3 L MCV 82.5 MCH 26.5 L MCHC 32.1 L RDW 16.1 H Plt Count 190 Sodium 138 Potassium 4.1 Chloride 110 H Carbon Dioxide 18 L Anion Gap 14 BUN 6 L Creatinine 0.5 L Est GFR ( Amer) > 60 Est GFR (Non-Af Amer) > 60 Random Glucose 64 L Calcium 8.1 L
[2017-05-07] MEDS: Sodium Chloride 0.9% 1,000 ML IV SCH ×3 (14:30→22:18)
[2017-05-07] MEDS ORDERED: cefTRIAXone (Rocephin) 1 gm Inj ONE (15:21)
[2017-05-07] MEDS ORDERED: Pneumococcal 23-Valent Vaccine IM ONE (18:23)
[2017-05-08] MEDS: Sodium Chloride 0.9% 1,000 ML IV SCH ×4 (05:13→23:25)
[2017-05-08 07:48] LABS: HEMATOCRIT 30.3 % (34.0-47.0); MEAN CELL VOLUME 82.1 fl (81.0-99.0); MEAN CORPUSCULAR HEMOGLOBIN 26.2 pg (27.0-31.0); MEAN CORPUSCULAR HGB CONC 31.9 g/dL (33.0-37.0); RED CELL DISTRIBUTION WIDTH 16.5 % (11.5-14.5); WHITE BLOOD COUNT 5.4 K/uL (4.8-10.8)
[2017-05-08 08:00] LABS: ALKALINE PHOSPHATASE 48 U/L (38-126); ALT/SGPT 23 U/L (9-52); AST/SGOT 21 U/L (14-36); BILIRUBIN,TOTAL 1.2 mg/dl (0.2-1.3); BLOOD UREA NITROGEN 6 mg/dl (7-17); CALCIUM 7.7 mg/dL (8.4-10.2); CARBON DIOXIDE 20 mmol/L (22-30); CHLORIDE 112 mmol/L (98-107); GFR AFRICAN-AMERICAN > 60; GLUCOSE,RANDOM 83 mg/dL (65-105); POTASSIUM 4.1 MMOL/L (3.6-5.0); SODIUM 138 mmol/l (132-148); TOTAL PROTEIN 6.3 G/DL (6.3-8.2)
--- NOTE | 2017-05-08 14:31 | CP.PCM.PN ---
Subjective - Date & Time of Evaluation Date of Evaluation: 05/08/17 Time of Evaluation: 06:50 - Subjective Subjective: Patient seen and examined at bedside this morning, reports severe R flank pain last night 8/10 pressure like that improved with medication and 1 NBNB vomiting and nausea. Pain radiates to r groin. Also complains of dysuria. Denies fever, chills, chest pain, palpitations, sob, back pain, diarrhea or constipation. Objective - Vital Signs/Intake and Output Vital Signs (last 24 hours): Temp Pulse Resp BP Pulse Ox 98.3 F 78 20 124/75 98 05/08/17 08:45 05/08/17 08:45 05/08/17 08:45 05/08/17 08:45 05/08/17 08:45 - Medications Medications: Current Medications Sodium Chloride (Sodium Chloride 0.9%) 1,000 mls @ 125 mls/hr IV .Q8H [facility] Last Admin: 05/08/17 07:08 Dose: Not Given Ceftriaxone Sodium 1 gm/ (Sodium Chloride) 100 mls @ 100 mls/hr IVPB DAILY [facility] Last Admin: 05/08/17 13:57 Dose: 100 mls/hr Ketorolac Tromethamine (Toradol) 30 mg IVP Q6 PRN PRN Reason: Pain, moderate (4-7) Last Admin: 05/08/17 14:01 Dose: 30 mg Morphine Sulfate (Morphine) 2 mg IVP Q4 PRN PRN Reason: Pain, severe (8-10) Last Admin: 05/07/17 23:35 Dose: 2 mg Ondansetron HCl (Zofran Inj) 4 mg IVP Q4 PRN PRN Reason: Nausea/Vomiting Last Admin: 05/07/17 23:39 Dose: 4 mg Tamsulosin HCl (Flomax) 0.4 mg PO DAILY [facility] Last Admin: 05/08/17 09:58 Dose: 0.4 mg - Labs Labs: 05/08/17 07:00 05/08/17 07:00 - Constitutional Appears: Well, No Acute Distress - Head Exam Head Exam: ATRAUMATIC, NORMOCEPHALIC - Eye Exam Eye Exam: EOMI, Normal appearance, PERRL - Respiratory Exam Respiratory Exam: Clear to Ausculation Bilateral. absent: Rales, Rhonchi, Wheezes - Cardiovascular Exam Cardiovascular Exam: RRR, +S1, +S2 - GI/Abdominal Exam GI & Abdominal Exam: Soft, Tenderness (R flank on deep palpation.), Normal Bowel Sounds. absent: Organomegaly - Back Exam Back Exam: NORMAL INSPECTION. absent: CVA tenderness (L), CVA tenderness (R) - Neurological Exam Neurological Exam: Alert, Awake, CN II-XII Intact, Oriented x3 Assessment and Plan - Assessment and Plan (Free Text) Assessment: 46 year old female with history of ureteral calculus x 1 month with increased pain x 1 day admitted for right obstructive ureteral calculus. 1-Ureteral Calculus -KUB shows stone 5.7 in right UVJ, consistent with previous KUB films -Patient afebrile. WBC WNL. -Toradol 10mg IV and morphine 2mg IV PNR for pain control -Zofran 4mg IV Q6h PRN nausea/vomiting -NS at 100cc/hr -Liquid diet advance as tolerated -c/w Medical expulsive therapy with tamsulosin 0.4mg PO daily -Strain urine for calculi -Urology Dr Hood recommends start abx and observation for 24h If improvement c/w treatment at home If no improvement perform lithotripsy. 2-Dysuria -No fever/chills -LE and blood positive in UA -Rocephin 1gram daily -Urine culture negative. 3-DVT Prophylaxis -SCDs for now
--- NOTE | 2017-05-08 21:10 | CON ---
DATE: 05/08/2017 UROLOGY CONSULTATION TIME OF CONSULTATION: Roughly 12:03 p.m. BRIEF HISTORY: The patient is a 46-year-old female who has a history of a distal 5.7 to 6 mm right ureteral stone, who was previously on Flomax and some pain medication, first diagnosed on CT on 04/09/2017 with some moderate right hydroureteronephrosis down to the stone. The patient presents again to [facility] Emergency Room with acute onset of right renal colic which began one day prior to admission. The patient was admitted, started on IV Rocephin and continued on Flomax and parenteral pain medication. The patient currently feels much better at this hour after receiving pain medication. She currently voids with her usual normal stream. She has no dysuria or abdominal pain except with some right lower quadrant discomfort at this time. She has no history of any alcohol use or tobacco use. ALLERGIES: SHE HAS NO KNOWN ALLERGIES TO ANY MEDICATIONS. PHYSICAL EXAMINATION: GENERAL: Today, she is well-developed, well-nourished female. She is alert, she is oriented. VITAL SINGS: Today, 05/08/2017 shows a temperature of 98.3, pulse rate of 78, blood pressure 124/75, and respiration rate 20 and O2 sat on room air was 98%. HEENT: Grossly within normal limits. NECK: Supple. THYROID: Nonpalpable. ABDOMEN: Soft, not distended or tender. Currently, the patient has no CVA tenderness and no suprapubic tenderness after receiving parenteral pain medication. LABORATORY DATA: Microbiology shows a urine culture shows no growth on 05/07/2017. Laboratory evaluation on 05/08/2017 on IV Rocephin shows a WBC count of 5.4 down from 7.9. On 05/07/2017, hemoglobin and hematocrit were 9.7 and 30.3 respectively with a platelet count of 183,000. Chem profile shows a sodium of 138, potassium 4.1, chloride 112, CO2 of 20, BUN and creatinine of 6 and 0.5 respectively with a GFR greater than 60. Random glucose is 83. Calcium is 7.7, total bilirubin was 1.2, AST was 21 and ALT 23, alk phos 48. A urinalysis on 05/07/2017 shows color was yellow, clarity was cloudy, specific gravity 1.014, protein and glucose both negative, ketone was trace, blood small, nitrite negative, bilirubin negative, urobilinogen 0.2-1.0, leukocyte esterase large, 12 rbc's and 18 wbc's with rare bacteria per high-power field. KUB done on 05/07/2017 shows a right UVJ calculus measuring 5.7 mm. DIAGNOSTIC IMPRESSION: 1. Right ureterovesical junction stone. 2. Right hydroureteronephrosis. 3. Right renal colic. PLAN: The plan for this patient is to: 1. Continue the patient on Flomax 0.4 mg daily. 2. Parenteral pain medication as needed. 3. Continue the IV Rocephin. 4. If the pain persists, we will schedule the patient for a cystoscopy with insertion of right ureteral stent with possible right ureteroscopic laser lithotripsy. Robert Hood MD [email or web address]
[2017-05-09 06:17] LABS: HEMATOCRIT 31.3 % (34.0-47.0); MEAN CELL VOLUME 82.5 fl (81.0-99.0); MEAN CORPUSCULAR HEMOGLOBIN 26.5 pg (27.0-31.0); MEAN CORPUSCULAR HGB CONC 32.1 g/dL (33.0-37.0); RED CELL DISTRIBUTION WIDTH 16.1 % (11.5-14.5)
[2017-05-09 06:50] LABS: BLOOD UREA NITROGEN 6 mg/dl (7-17); CALCIUM 8.1 mg/dL (8.4-10.2); CARBON DIOXIDE 18 mmol/L (22-30); CHLORIDE 110 mmol/L (98-107); GFR AFRICAN-AMERICAN > 60; GLUCOSE,RANDOM 64 mg/dL (65-105); POTASSIUM 4.1 MMOL/L (3.6-5.0); SODIUM 138 mmol/l (132-148)
--- NOTE | 2017-05-09 07:27 | CP.PCM.PN ---
Addendum entered and electronically signed by Junior Marte MD 05/09/17 17 :05: Pt S/P Renal stent placement and lithotripsy performed. Pt feeling weak and complaining of severe pain after surgical procedure. Pt denies fever, CP, SOB or dizziness. -Hydromorphine 0.5 mg ordered. -f/u CBC and CMP. -c/w Ceftriaxone while hospitalized. -d/c tomorrow on Ceftin 500 mg BID for 10 days, F/u appt with Dr Hood in 2 weeks. Original Note: Subjective - Date & Time of Evaluation Date of Evaluation: 05/09/17 Time of Evaluation: 09:00 - Subjective Subjective: 46 y/o F examined at bedside. Pt resting comfortably on bed. Pt complains of generalized weakness and epigastric abdominal pain that is progressively aggravating since yesterday. Pt has NOT been able to eat for the past 3 days. Pt reports medications are improving pain. Pt awaiting on decision for lithotripsy. Today, pt denies CP, SOB, fever, nausea or urinary complaints. Objective - Vital Signs/Intake and Output Vital Signs (last 24 hours): Temp Pulse Resp BP Pulse Ox 98.5 F 69 19 119/66 99 05/09/17 00:34 05/09/17 00:34 05/09/17 00:34 05/09/17 00:34 05/09/17 00:34 - Medications Medications: Current Medications Sodium Chloride (Sodium Chloride 0.9%) 1,000 mls @ 125 mls/hr IV .Q8H [facility] Last Admin: 05/08/17 23:25 Dose: 125 mls/hr Ceftriaxone Sodium 1 gm/ (Sodium Chloride) 100 mls @ 100 mls/hr IVPB DAILY [facility] Last Admin: 05/08/17 13:57 Dose: 100 mls/hr Ketorolac Tromethamine (Toradol) 30 mg IVP Q6 PRN PRN Reason: Pain, moderate (4-7) Last Admin: 05/09/17 03:02 Dose: 30 mg Morphine Sulfate (Morphine) 2 mg IVP Q4 PRN PRN Reason: Pain, severe (8-10) Last Admin: 05/07/17 23:35 Dose: 2 mg Ondansetron HCl (Zofran Inj) 4 mg IVP Q4 PRN PRN Reason: Nausea/Vomiting Last Admin: 05/08/17 22:03 Dose: 4 mg Tamsulosin HCl (Flomax) 0.4 mg PO DAILY [facility] Last Admin: 05/08/17 09:58 Dose: 0.4 mg - Labs Labs: 05/09/17 06:05 05/09/17 06:05 - Constitutional Appears: No Acute Distress - Head Exam Head Exam: ATRAUMATIC, NORMAL INSPECTION - Eye Exam Eye Exam: EOMI, Normal appearance - ENT Exam ENT Exam: Mucous Membranes Dry - Neck Exam Neck Exam: Full ROM - Respiratory Exam Respiratory Exam: Clear to Ausculation Bilateral, NORMAL BREATHING PATTERN - Cardiovascular Exam Cardiovascular Exam: REGULAR RHYTHM - GI/Abdominal Exam GI & Abdominal Exam: Soft, Tenderness. absent: Distended, Guarding Assessment and Plan - Assessment and Plan (Free Text) Assessment: 46 year old female with history of ureteral calculus x 1 month with increased pain x 1 day admitted for right obstructive ureteral calculus. Plan: 1-Ureteral Calculus -KUB shows stone 5.7 in right UVJ, consistent with previous KUB films -Patient afebrile. WBC WNL. -NPO diet until surgical intervention takes place. -D5 1/2 NS@126/HR -c/w Ceftriaxone and medical expulsive therapy with tamsulosin 0.4mg PO daily -Strain urine for calculi -Urology Dr Hood recommended start abx and observation for 24h. If improvement c/w treatment at home. If no improvement perform lithotripsy. 2-Dysuria -No fever/chills -Leuko Esterase and blood positive in UA -Rocephin 1 gram daily -Urine culture negative. 3-DVT Prophylaxis -SCDs for now 4. Abdominal Pain -Pantroprazole ordered. -F/U symptoms.
[2017-05-09] MEDS: Sodium Chloride 0.9% 1,000 ML IV SCH (08:38)
[2017-05-09] MEDS ORDERED: Dextrose 5%/0.45% NS 1,000 ML IV SCH (08:45)
[2017-05-09] MEDS ORDERED: ePHEDrine 50 mg/ml Inj ONE ×2 (11:00→11:59)
[2017-05-09] MEDS ORDERED: Propofol 10 mg/ml Inj (20 ML) ONE (11:00)
[2017-05-09] MEDS ORDERED: Succinylcholine 200 mg/10 ml Inj IV ONE (11:00)
[2017-05-09] MEDS ORDERED: Midazolam 2 MG/2 ML VIAL ONE (11:00)
[2017-05-09] MEDS ORDERED: Lidocaine 2% Jelly (Uro-Jet) ONE (11:01)
[2017-05-09] MEDS ORDERED: Sevoflurane - Inhalation Anesthetic Liq (250 ml) ONE (11:04)
[2017-05-09] MEDS ORDERED: Lactated Ringer's 1,000 ML IV ONE ×2 (11:24→12:40)
[2017-05-09] MEDS ORDERED: Dexamethasone 4 mg/1 ml ONE (11:42)
[2017-05-09] MEDS ORDERED: HYDROmorphone 0.5 mg/0.5 ml ISec IVP PRN ×2 (12:48→16:33)
[2017-05-09] MEDS: Lactated Ringer's 1,000 ML IV SCH ×2 (14:41→20:40)
--- NOTE | 2017-05-09 14:46 | RAD ---
PROCEDURE: Intraoperative fluoroscopy HISTORY: CYSTO COMPARISON: Not available TECHNIQUE: Intraoperative fluoroscopy was provided for a cystoscopic procedure. Total time of fluoroscopy was 0.1 minutes. FINDINGS: Multiple fluoroscopic spot films are submitted. These films are on file for review. IMPRESSION: Fluoroscopy provided.
[2017-05-10] MEDS: Lactated Ringer's 1,000 ML IV SCH (04:40)
[2017-05-10 07:45] LABS: MEAN CELL VOLUME 81.9 fl (81.0-99.0); MEAN CORPUSCULAR HEMOGLOBIN 26.3 pg (27.0-31.0); MEAN CORPUSCULAR HGB CONC 32.1 g/dL (33.0-37.0); WHITE BLOOD COUNT 8.6 K/uL (4.8-10.8)
[2017-05-10 08:05] LABS: BLOOD UREA NITROGEN 8 mg/dl (7-17); CALCIUM 8.4 mg/dL (8.4-10.2); CARBON DIOXIDE 18 mmol/L (22-30); CHLORIDE 110 mmol/L (98-107); GFR AFRICAN-AMERICAN > 60; GLUCOSE,RANDOM 81 mg/dL (65-105); SODIUM 137 mmol/l (132-148)
[2017-05-10] MEDS ORDERED: Oxycodone/Acetaminophen 5/325 mg Tab PO PRN (13:02)
--- NOTE | 2017-05-10 17:17 | CP.PCM.PN ---
Subjective - Date & Time of Evaluation Date of Evaluation: 05/10/17 Time of Evaluation: 09:00 - Subjective Subjective: Pt seen and examined today at bedside. Supine, appearing somewhat uncomfortable and tired. States continued mildly pink hematuria, dysuria, and RLQ/suprapubic pain. Also states diffusely weak. Denies fevers/chills, dizziness, n/v/d, chest pain, SOB, dyspnea, or cough. Objective - Vital Signs/Intake and Output Vital Signs (last 24 hours): Temp Pulse Resp BP Pulse Ox 98.2 F 75 18 109/69 100 05/10/17 15:39 05/10/17 15:39 05/10/17 15:39 05/10/17 15:39 05/10/17 15:39 - Medications Medications: Current Medications Ceftriaxone Sodium 1 gm/ (Sodium Chloride) 100 mls @ 100 mls/hr IVPB DAILY [facility] Last Admin: 05/10/17 09:03 Dose: 100 mls/hr Ketorolac Tromethamine (Toradol) 30 mg IVP Q6 PRN PRN Reason: Pain, Mild (1-3) Ondansetron HCl (Zofran Inj) 4 mg IVP Q4 PRN PRN Reason: Nausea/Vomiting Last Admin: 05/09/17 08:36 Dose: 4 mg Oxycodone/Acetaminophen (Percocet 5/325 Mg Tab) 2 tab PO Q6 PRN PRN Reason: Pain, severe (8-10) Stop: 05/13/17 13:03 Oxycodone/Acetaminophen (Percocet 5/325 Mg Tab) 1 tab PO Q6 PRN PRN Reason: Pain, moderate (4-7) Stop: 05/13/17 13:03 Last Admin: 05/10/17 13:53 Dose: 1 tab Pantoprazole Sodium (Protonix Inj) 40 mg IVP DAILY [facility] Last Admin: 05/10/17 09:03 Dose: 40 mg Phenazopyridine HCl (Pyridium) 200 mg PO TID [facility] Last Admin: 05/10/17 16:30 Dose: 200 mg Tamsulosin HCl (Flomax) 0.4 mg PO DAILY [facility] Last Admin: 05/10/17 09:03 Dose: 0.4 mg - Labs Labs: 05/10/17 05:30 05/10/17 05:30 - Constitutional Appears: Non-toxic, In Acute Distress - Head Exam Head Exam: ATRAUMATIC, NORMOCEPHALIC - Eye Exam Eye Exam: EOMI - ENT Exam ENT Exam: Mucous Membranes Dry - Respiratory Exam Respiratory Exam: Clear to Ausculation Bilateral, NORMAL BREATHING PATTERN - Cardiovascular Exam Cardiovascular Exam: REGULAR RHYTHM, +S1, +S2 - GI/Abdominal Exam GI & Abdominal Exam: Soft, Tenderness (mild RLQ, suprapubic), Normal Bowel Sounds - Extremities Exam Extremities Exam: absent: Calf Tenderness, Pedal Edema - Neurological Exam Neurological Exam: Alert, Oriented x3 Assessment and Plan - Assessment and Plan (Free Text) Plan: 46 yo F w PMHx of ureteral calculus x 1 month with increased pain x 1 day admitted for right obstructive ureteral calculus s/p lithotripsy and urethral stent POD#1 1) Ureteral Calculus -c/o diffuse weakness and mild/moderate pain located in RLQ/suprapubic -Stent placed and lithotripsy performed yesterday -post operative course VS pain medication side effect -Afebrile. WBC wnl -Toradol 30mg IVP PRN mild pain -Percocet 1 tab PO Q6H moderate pain -Percocet 2 tabs PO Q6H severe pain ---Morphine d/c'ed -Ceftriaxone 1g IVPB Daily; upon d/c will switch to Ceftin 500 mg BID for 10 days, as per Urology -Tamsulosin 0.4mg PO daily -Strain urine for calculi -will f/u w Urology in 2 weeks -f/u patient symptoms and pain tolerance tomorrow 2) Dysuria -still present; minimal hematuria present -Afebrile, no WBC elevation -UA (05/07): +Leuk Esterase +RBCs +WBCs -Ceftriaxone 1g IVPB Daily -UCx negative -f/u symptoms 3) Abdominal Pain -Improved -Pantroprazole ordered; will d/c before tomorrow AM now that she's tolerating food -f/u symptoms 4) DVT Prophylaxis -SCDs
[2017-05-10] MEDS: Oxycodone/Acetaminophen 5/325 mg Tab PO PRN (19:59)
--- NOTE | 2017-05-10 20:33 | PN ---
DATE OF FOLLOWUP: 05/10/2017 SUBJECTIVE: The patient is status post cystoscopy, right ureteroscopic laser lithotripsy, and insertion of right ureteral stent for distal right ureteral stone. The patient is now more comfortable at this hour. She received one dose of Percocet and says she is now ready to go home. She is voiding blood-tinged urine well. She has been advised to strain all her urine for stones. PHYSICAL EXAMINATION: Her abdomen is soft, not distended or tender. No CVA tenderness. No suprapubic tenderness. LABORATORY DATA: Her laboratory evaluation on 05/10/2017 shows a CBC with a WBC count of 8.6, hemoglobin of 9.6, and hematocrit of 30.0 with a platelet count of 203,000. Her basic chem profile shows a sodium of 137, potassium 4.0, chloride 110, CO2 18, BUN and creatinine of 8 and 0.6 respectively with a GRF of greater than 60. Glucose is 101 and calcium is 8.4. The patient was complaining of some generalized weakness preoperatively and also some postoperatively, but now she says she feels much better at this hour. IMPRESSION AND PLAN: Diagnostic impression for this patient is ureterolithiasis, right side, status post cystoscopy, ureteroscopic laser lithotripsy with insertion of right ureteral stent. The patient can go home at any time regarding urology on some oral pain medication, possibly Pyridium 200 mg t.i.d. and Flomax 0.4 mg daily. The patient will be seen in office followup in about 2 weeks to schedule her for cysto removal of the right ureteral stent. Robert Hood MD
[2017-05-11 07:51] VITALS: BP 118/77; PULSE 75; RESP 17; TEMP 98; O2SAT 99
[2017-05-11 08:17] LABS: HEMATOCRIT 30.2 % (34.0-47.0); MEAN CELL VOLUME 81.9 fl (81.0-99.0); MEAN CORPUSCULAR HEMOGLOBIN 26.4 pg (27.0-31.0); MEAN CORPUSCULAR HGB CONC 32.3 g/dL (33.0-37.0); RED CELL DISTRIBUTION WIDTH 16.5 % (11.5-14.5); WHITE BLOOD COUNT 6.7 K/uL (4.8-10.8)
[2017-05-11 08:21] LABS: BLOOD UREA NITROGEN 10 mg/dl (7-17); CALCIUM 8.4 mg/dL (8.4-10.2); CARBON DIOXIDE 23 mmol/L (22-30); CHLORIDE 107 mmol/L (98-107); GFR AFRICAN-AMERICAN > 60; GLUCOSE,RANDOM 91 mg/dL (65-105); POTASSIUM 3.9 MMOL/L (3.6-5.0); SODIUM 140 mmol/l (132-148)
[2017-05-11] MEDS: Oxycodone/Acetaminophen 5/325 mg Tab PO PRN (09:10)
--- NOTE | 2017-05-11 13:45 | CP.PCM.DIS ---
Provider - Provider Date of Admission: 05/08/17 12:36 Attending physician: Radha Tamez MD Hospital Course - Lab Results Lab Results: Most Recent Lab Values WBC 6.7 K/uL (4.8-10.8) 05/11/17 06:00 RBC 3.69 Mil/uL (3.80-5.20) L 05/11/17 06:00 Hgb 9.8 g/dL (12.0-16.0) L 05/11/17 06:00 Hct 30.2 % (34.0-47.0) L 05/11/17 06:00 MCV 81.9 fl (81.0-99.0) 05/11/17 06:00 MCH 26.4 pg (27.0-31.0) L 05/11/17 06:00 MCHC 32.3 g/dL (33.0-37.0) L 05/11/17 06:00 RDW 16.5 % (11.5-14.5) H 05/11/17 06:00 Plt Count 211 K/uL (130-400) 05/11/17 06:00 MPV 8.4 fl (7.2-11.7) 05/07/17 10:35 Neut % (Auto) 63.4 % (50.0-75.0) 05/07/17 10:35 Lymph % (Auto) 26.3 % (20.0-40.0) 05/07/17 10:35 [place] % (Auto) 8.9 % (0.0-10.0) 05/07/17 10:35 Eos % (Auto) 0.5 % (0.0-4.0) 05/07/17 10:35 Baso % (Auto) 0.9 % (0.0-2.0) 05/07/17 10:35 Neut # 5.0 K/uL (1.8-7.0) 05/07/17 10:35 Lymph # 2.1 K/uL (1.0-4.3) 05/07/17 10:35 [place] # 0.7 K/uL (0.0-0.8) 05/07/17 10:35 Eos # 0.0 K/uL (0.0-0.7) 05/07/17 10:35 Baso # 0.1 K/uL (0.0-0.2) 05/07/17 10:35 Sodium 140 mmol/l (132-148) 05/11/17 06:00 Potassium 3.9 MMOL/L (3.6-5.0) 05/11/17 06:00 Chloride 107 mmol/L (98-107) 05/11/17 06:00 Carbon Dioxide 23 mmol/L (22-30) 05/11/17 06:00 Anion Gap 13 (10-20) 05/11/17 06:00 BUN 10 mg/dl (7-17) 05/11/17 06:00 Creatinine 0.5 mg/dL (0.7-1.2) L 05/11/17 06:00 Est GFR ( Amer) > 60 05/11/17 06:00 Est GFR (Non-Af Amer) > 60 05/11/17 06:00 POC Glucose (mg/dL) 101 mg/dL (65-110) 05/10/17 13:46 Random Glucose 91 mg/dL (65-105) 05/11/17 06:00 Uric Acid 3.0 mg/Dl (2.2-7.5) 05/08/17 07:00 Calcium 8.4 mg/dL (8.4-10.2) 05/11/17 06:00 Total Bilirubin 1.2 mg/dl (0.2-1.3) 05/08/17 07:00 AST 21 U/L (14-36) 05/08/17 07:00 ALT 23 U/L (9-52) 05/08/17 07:00 Alkaline Phosphatase 48 U/L (38-126) 05/08/17 07:00 Total Protein 6.3 G/DL (6.3-8.2) 05/08/17 07:00 Albumin 3.2 g/dL (3.5-5.0) L D 05/08/17 07:00 Globulin 3.1 gm/dL (2.2-3.9) 05/08/17 07:00 Albumin/Globulin Ratio 1.0 (1.0-2.1) 05/08/17 07:00 Urine Color Yellow (YELLOW) 05/07/17 10:40 Urine Clarity Cloudy (Clear) 05/07/17 10:40 Urine pH 7.0 (5.0-8.0) 05/07/17 10:40 Ur Specific [place] 1.014 (1.003-1.030) 05/07/17 10:40 Urine Protein Negative mg/dL (NEGATIVE) 05/07/17 10:40 Urine Glucose (UA) Neg mg/dL (Normal) 05/07/17 10:40 Urine Ketones Trace mg/dL (NEGATIVE) 05/07/17 10:40 Urine Blood Small (NEGATIVE) 05/07/17 10:40 Urine Nitrate Negative (NEGATIVE) 05/07/17 10:40 Urine Bilirubin Negative (NEGATIVE) 05/07/17 10:40 Urine Urobilinogen 0.2-1.0 mg/dL (0.2-1.0) 05/07/17 10:40 Ur Leukocyte Esterase Large [place]/uL (Negative) 05/07/17 10:40 Urine RBC (Auto) 12 /hpf (0-3) H 05/07/17 10:40 Urine Microscopic WBC 18 /hpf (0-5) H 05/07/17 10:40 Ur Squamous Epith Cells 8 /hpf (0-5) H 05/07/17 10:40 Urine Bacteria Rare (<OCC) 05/07/17 10:40 Discharge Exam - Head Exam Head Exam: ATRAUMATIC, NORMOCEPHALIC Discharge Plan - Follow Up Plan Condition: GUARDED Disposition: HOME/ ROUTINE
--- NOTE | 2017-05-11 16:40 | CP.PCM.DIS ---
Provider - Provider Date of Admission: 05/08/17 12:36 Attending physician: Radha Tamez MD Primary care physician: [facility] Consults: Urology: Dr Hood. Time Spent in preparation of Discharge (in minutes): 25 Diagnosis - Discharge Diagnosis (1) Ureteral calculus Status: Acute Hospital Course - Lab Results Lab Results: Most Recent Lab Values WBC 6.7 K/uL (4.8-10.8) 05/11/17 06:00 RBC 3.69 Mil/uL (3.80-5.20) L 05/11/17 06:00 Hgb 9.8 g/dL (12.0-16.0) L 05/11/17 06:00 Hct 30.2 % (34.0-47.0) L 05/11/17 06:00 MCV 81.9 fl (81.0-99.0) 05/11/17 06:00 MCH 26.4 pg (27.0-31.0) L 05/11/17 06:00 MCHC 32.3 g/dL (33.0-37.0) L 05/11/17 06:00 RDW 16.5 % (11.5-14.5) H 05/11/17 06:00 Plt Count 211 K/uL (130-400) 05/11/17 06:00 MPV 8.4 fl (7.2-11.7) 05/07/17 10:35 Neut % (Auto) 63.4 % (50.0-75.0) 05/07/17 10:35 Lymph % (Auto) 26.3 % (20.0-40.0) 05/07/17 10:35 [place] % (Auto) 8.9 % (0.0-10.0) 05/07/17 10:35 Eos % (Auto) 0.5 % (0.0-4.0) 05/07/17 10:35 Baso % (Auto) 0.9 % (0.0-2.0) 05/07/17 10:35 Neut # 5.0 K/uL (1.8-7.0) 05/07/17 10:35 Lymph # 2.1 K/uL (1.0-4.3) 05/07/17 10:35 [place] # 0.7 K/uL (0.0-0.8) 05/07/17 10:35 Eos # 0.0 K/uL (0.0-0.7) 05/07/17 10:35 Baso # 0.1 K/uL (0.0-0.2) 05/07/17 10:35 Sodium 140 mmol/l (132-148) 05/11/17 06:00 Potassium 3.9 MMOL/L (3.6-5.0) 05/11/17 06:00 Chloride 107 mmol/L (98-107) 05/11/17 06:00 Carbon Dioxide 23 mmol/L (22-30) 05/11/17 06:00 Anion Gap 13 (10-20) 05/11/17 06:00 BUN 10 mg/dl (7-17) 05/11/17 06:00 Creatinine 0.5 mg/dL (0.7-1.2) L 05/11/17 06:00 Est GFR ( Amer) > 60 05/11/17 06:00 Est GFR (Non-Af Amer) > 60 05/11/17 06:00 POC Glucose (mg/dL) 101 mg/dL (65-110) 05/10/17 13:46 Random Glucose 91 mg/dL (65-105) 05/11/17 06:00 Uric Acid 3.0 mg/Dl (2.2-7.5) 05/08/17 07:00 Calcium 8.4 mg/dL (8.4-10.2) 05/11/17 06:00 Total Bilirubin 1.2 mg/dl (0.2-1.3) 05/08/17 07:00 AST 21 U/L (14-36) 05/08/17 07:00 ALT 23 U/L (9-52) 05/08/17 07:00 Alkaline Phosphatase 48 U/L (38-126) 05/08/17 07:00 Total Protein 6.3 G/DL (6.3-8.2) 05/08/17 07:00 Albumin 3.2 g/dL (3.5-5.0) L D 05/08/17 07:00 Globulin 3.1 gm/dL (2.2-3.9) 05/08/17 07:00 Albumin/Globulin Ratio 1.0 (1.0-2.1) 05/08/17 07:00 Urine Color Yellow (YELLOW) 05/07/17 10:40 Urine Clarity Cloudy (Clear) 05/07/17 10:40 Urine pH 7.0 (5.0-8.0) 05/07/17 10:40 Ur Specific [place] 1.014 (1.003-1.030) 05/07/17 10:40 Urine Protein Negative mg/dL (NEGATIVE) 05/07/17 10:40 Urine Glucose (UA) Neg mg/dL (Normal) 05/07/17 10:40 Urine Ketones Trace mg/dL (NEGATIVE) 05/07/17 10:40 Urine Blood Small (NEGATIVE) 05/07/17 10:40 Urine Nitrate Negative (NEGATIVE) 05/07/17 10:40 Urine Bilirubin Negative (NEGATIVE) 05/07/17 10:40 Urine Urobilinogen 0.2-1.0 mg/dL (0.2-1.0) 05/07/17 10:40 Ur Leukocyte Esterase Large [place]/uL (Negative) 05/07/17 10:40 Urine RBC (Auto) 12 /hpf (0-3) H 05/07/17 10:40 Urine Microscopic WBC 18 /hpf (0-5) H 05/07/17 10:40 Ur Squamous Epith Cells 8 /hpf (0-5) H 05/07/17 10:40 Urine Bacteria Rare (<OCC) 05/07/17 10:40 - Hospital Course Hospital Course: -46 year old female with history of ureteral calculus x 1 month with increased pain x 1 day admitted for right obstructive ureteral calculus. On 04/16/17: CT Abdomen reviewed detected a 6mm stone in the distal right ureter associated with hydroureteronephrosis. Pt underwent lithotripsy and R ureteral stent placement. Treated while inpatient with Ceftriaxone and medical expulsive therapy with tamsulosin 0.4mg PO daily. -Pt discharged on Ceftin 500 mg BID for 10 days, Percocet 1 tab PRN for moderate and severe pain, Pyridium 200 mg TID for 2 days and continue Tamsulosin 0.4 mg PO daily. F/u appt with Dr Hood in 2 weeks. F/U appt with Dr Carpio on 05/26/17 at 1:20 pm. -Upon discharge, pt reported feeling well, pain tolerable with medications, NO urinary complaints, eating well but low appetite. ER instructions discussed with pt. - Date & Time of H&P Date of H&P: 05/07/17 Time of H&P: 14:17 Discharge Exam - Head Exam Head Exam: ATRAUMATIC, NORMOCEPHALIC - Eye Exam Eye Exam: EOMI, PERRL - ENT Exam ENT Exam: Mucous Membranes Moist - Neck Exam Neck exam: Full Rom - Respiratory Exam Respiratory Exam: NORMAL BREATHING PATTERN, UNREMARKABLE - Cardiovascular Exam Cardiovascular Exam: REGULAR RHYTHM, +S1, +S2 - GI/Abdominal Exam GI & Abdominal Exam: Normal Bowel Sounds Discharge Plan - Discharge Medications Prescriptions: Cefuroxime Axetil [Cefuroxime] 500 mg PO BID #20 tablet oxyCODONE/Acetaminophen [Percocet 5/325 mg Tab] 1 tab PO Q6 PRN #15 tab PRN Reason: Pain, Moderate (4-7) Phenazopyridine [Pyridium] 200 mg PO TID #4 tab - Follow Up Plan Condition: GUARDED Disposition: HOME/ ROUTINE Instructions: Kidney Stones (GEN), Cystoscopy (DC), Acute Abdominal Pain (DC), Acute Abdominal Pain (GEN) Additional Instructions: F/U appointment PMD on 05/26 at 1:20pm (w/ Dr Carpio at [facility]). Call and set up appointment with Urologist Dr Hood in 2 weeks. Follow post-surgical instructions. Dicussed ER precuations w/ pt.
--- NOTE | 2017-05-13 08:33 | OP ---
PROCEDURE DATE: 05/09/17 PREOPERATIVE DIAGNOSIS: Right ureterovesical junction stone. POSTOPERATIVE DIAGNOSIS: Right ureterovesical junction stone. PROCEDURE: Cystoscopy with right ureteroscopic laser lithotripsy and insertion of right multi length ureteral stent. SURGEON: Robert Hood MD TYPE OF ANESTHESIA: Laryngeal mask anesthesia with Dr. Hawa Flanagan. DESCRIPTION OF PROCEDURE: The patient was placed on the cystoscopy table in the dorsal lithotomy position, prepped and draped in the usual sterile fashion with Betadine solution under adequate laryngeal mask anesthesia. KUB was obtained which showed the right UVJ stone in a mostly longitudinal position, right at the right ureterovesical junction. Next, a #21-Kenyan Olympus cystoscope was inserted into bladder. Bladder examined in all 4 quadrants, there were no foreign bodies or suspicious lesions seen in the bladder, no evidence of any bladder malignancy. The bladder mucosa appeared to be no more than 1+ trabeculated. Both ureteral orifices were in normal location, normal configuration, on the trigone with clear reflux from the left ureteral orifice and diminished from the right ureteral orifice. Next, a Microvasive 35 thousandth inch, 106 cm Sensor wire was attempted to be inserted into the right ureteral orifice, but this met with resistance secondary to the stone which was right near the right ureteral orifice. Next, a short rigid ureteroscope, ACMI type, was inserted into the right ureteral orifice after removal of the cystoscope with a Sensor wire was now able to be passed up beyond the stone with the ureteroscope. This was passed all the way up to the right renal pelvis with at least a single coil in the right renal pelvis. The ureteroscope was then removed leaving the Sensor wire as a safety wire . Next, the ureteroscope was then reinserted into the bladder and with a second Sensor wire, this was passed alongside the indwelling Sensor wire and was able to allow the ureteroscope passage up to the level of the stone just above the right ureteral orifice. Using a holmium laser with a frequency setting of 6 hertz and a joule setting of 9 joules, the stone was broken into at least 4 pieces and 147 pulses were used. Next, attempt to remove fragments met with some difficulty secondary to difficulty expanding the basket around the level of the stone. It was decided to stop the procedure at this time and just pass a Microvasive multi length 6-Kenyan stent. The ureteroscope was removed and the safety wire was then passed back through the original cystoscope which was passed into the bladder and then, a Microvasive 6-Kenyan multi length stent was passed over this Sensor wire up the area of the right ureter to the right renal pelvis with at least 2 coils seen in the right renal pelvis and the end of the stent seen in the bladder. The Sensor wire was removed and at least single coil was then seen in the bladder confirming position of this right ureteral stent. At the end of the procedure, fluoroscopy showed very tiny fragments seen right at the right ureteral orifice, measuring less than, you know, 1 mm each. At the end of the procedure, the bladder was thoroughly irrigated with a Amarjit syringe and there were no stones irrigated from the bladder at this time. Plan for this patient will be to allow the patient to go home and let the stent dilate at the ureter and possibly pass some of the stone fragments. The patient can be seen in office followup in about 2 weeks and schedule for removal of the right ureteral stent. Robert Hood MD cc:
== END 2017-05-11 17:09 | disposition home or self-care (01) | DRG 324 ==
LOC: H.ER 09:54 → H.ERHOLD 12:35 → H.MEDSURG1 16:17 → OBSVTOIN 05-08 12:36
PROVIDERS: ADMIT Emergency Medicine; ATTEND Emergency Medicine
PROC: 3E0234Z Introduction of Serum, Toxoid and Vaccine into Muscle, Percutaneous Approach (ICD-10-PCS; 2017-05-08)
PROC: 0T768DZ Dilation of Right Ureter with Intraluminal Device, Via Natural or Artificial Opening Endoscopic (ICD-10-PCS; 2017-05-09)
PROC: 0TF68ZZ Fragmentation in Right Ureter, Via Natural or Artificial Opening Endoscopic (ICD-10-PCS; principal; 2017-05-09 11:15)
DX: N13.2 Hydronephrosis with renal and ureteral calculous obstruction (principal); R30.0 Dysuria; Z23 Encounter for immunization

== ENCOUNTER 2017-05-21 10:56 | Emergency (ER) | payer SELFPAY ==
[2017-05-21 10:56] VITALS: BMI 24.2
[2017-05-21 11:35] VITALS: BP 158/71; PULSE 72; RESP 20; TEMP 96.6; O2SAT 98
[2017-05-21 13:06] LABS: RBC URINE 89 /hpf (0-3); URINE BACTERIA FEW (<OCC); URINE BILIRUBIN NEGATIVE (NEGATIVE); URINE BLOOD MODERATE (NEGATIVE); URINE COLOR YELLOW (YELLOW); URINE GLUCOSE (UA) NEG (Normal); URINE KETONE NEGATIVE (NEGATIVE); URINE LEUKOCYTE ESTERASE MOD Leu/uL (Negative); URINE PROTEIN 30 mg/dL (NEGATIVE); URINE UROBILINOGEN 0.2-1.0 mg/dL (0.2-1.0); WBC URINE 28 /hpf (0-5)
--- NOTE | 2017-05-21 13:08 | ED PDOC ---
HPI: Female Pain Time Seen by Provider: 05/21/17 12:02 Chief Complaint (Nursing): Groin Pain Chief Complaint (Provider): Groin Pain History Per: Patient History/Exam Limitations: no limitations Onset/Duration Of Symptoms: Days (x 2 weeks) Current Symptoms Are (Timing): Still Present Additional Complaint(s): Ginger is a 46 y/o female who presents to the ED complaining of right-sided groin pain, since surgery 2 weeks ago. Patient had a lithotripsy done on the right side along with stent placement by Dr. Mary. States that she is unable to follow up with his office due to insurance problems as she is unable to pay the visit fee. Denies fever, nausea, and vomiting. Currently taking Cefuroxime and Percocet. PMD: Unknown Past Medical History Reviewed: Historical Data, Nursing Documentation, Vital Signs Vital Signs: Last Vital Signs Temp 96.6 F L 05/21/17 11:34 Pulse 72 05/21/17 11:34 Resp 20 05/21/17 11:34 BP 158/71 H 05/21/17 11:34 Pulse Ox 98 05/21/17 11:34 - Medical History PMH: Anemia, Kidney Stones Denies: HIV, Chronic Kidney Disease - Surgical History Surgical History: Cholecystectomy, Endoscopy, Other surgeries: lithotripsy with right stent placement - Family History Family History: States: Unknown Family Hx - Social History Current smoker - smoking cessation education provided: No Alcohol: None Drugs: Denies - Home Medications Home Medications: Ambulatory Orders Medication Instructions Recorded Tamsulosin [Flomax] 0.4 mg PO DAILY #20 cap 04/17/17 Ibuprofen [Motrin Tab] 600 mg PO Q6H PRN 05/07/17 Omeprazole 40 mg PO DAILY PRN 05/07/17 traMADol [Ultram] 50 mg PO Q6H PRN 05/07/17 Phenazopyridine [Pyridium] 200 mg PO TID #4 tab 05/11/17 oxyCODONE/Acetaminophen [Percocet 1 tab PO Q6 PRN #15 tab 05/11/17 5/325 mg Tab] Cefdinir [Omnicef] 300 mg PO BID #14 cap 05/21/17 - Allergies Allergies/Adverse Reactions: Allergies Allergy/AdvReac Type Severity Reaction Status Date / Time No Known Allergies Allergy Verified 04/09/17 11:33 Review of Systems ROS Statement: Except As Marked, All Systems Reviewed And Found Negative Constitutional: Negative for: Fever Gastrointestinal: Negative for: Nausea, Vomiting Musculoskeletal: Positive for: Other (Right groin pain) Physical Exam - Reviewed Nursing Documentation Reviewed: Yes Vital Signs Reviewed: Yes - Physical Exam Appears: Positive for: Non-toxic, No Acute Distress Head Exam: Positive for: ATRAUMATIC, NORMAL INSPECTION, NORMOCEPHALIC Skin: Positive for: Normal Color, Warm, Dry Eye Exam: Positive for: EOMI, Normal appearance, PERRL Neck: Positive for: Normal, Painless ROM Cardiovascular/Chest: Positive for: Regular Rate, Rhythm. Negative for: Murmur Respiratory: Positive for: Normal Breath Sounds. Negative for: Accessory Muscle Use, Respiratory Distress Gastrointestinal/Abdominal: Positive for: Normal Exam, Soft. Negative for: Tenderness Back: Positive for: Normal Inspection. Negative for: L CVA Tenderness, R CVA Tenderness Extremity: Positive for: Normal ROM. Negative for: Deformity Neurologic/Psych: Positive for: Alert, Oriented - Laboratory Results Result Diagrams: 05/21/17 12:40 05/21/17 13:30 - ECG O2 Sat by Pulse Oximetry: 98 (RA) Pulse Ox Interpretation: Normal Medical Decision Making Medical Decision Making: Time: 12:24 Initial Plan: --CMP --CBC w/ differential --Urine --Urine C & S --Urinalysis --VBG shock panel --Blood culture --Pending reevaluation and disposition Time: 13:30 --Patient is resting comfortably. Vital signs stable. Time: 14:44 --Labs reviewed, significant for elevated WBC in urine. Otherwise wnl. --Dr. Mary notified of patient's ED visit. Recommends she call today to schedule follow up. States he has been expecting her and that pt. does not require any imaging. Also requests that pt.'s antibiotic be switched to cefdinir and that leukocytes are likely due to the stent. --Patient made aware that she can visit the Clinic to have stent removed, if she has difficulty seeing Urology --Patient is medically stable and will be discharged home. --Counseling was provided and all questions were answered regarding diagnosis and need for follow up with Dr. Mary. There is agreement to discharge plan. Return if symptoms persist or worsen. Scribe Attestation: Documented by Betsy Reis, acting as a scribe for Lavon Mendoza PA-C Provider Scribe Attestation: All medical record entries made by the Scribe were at my direction and personally dictated by me. I have reviewed the chart and agree that the record accurately reflects my personal performance of the history, physical exam, medical decision making, and the department course for this patient. I have also personally directed, reviewed, and agree with the discharge instructions and disposition. Disposition - Clinical Impression Clinical Impression: UTI (urinary tract infection) - Patient ED Disposition Is Patient to be Admitted: No - Disposition Referrals: Robert Mary MD [Staff Provider] - Disposition: Routine/Home Disposition Time: 14:40 Condition: STABLE Additional Instructions: CONTACT DR. MARY'S OFFICE TODAY TO MAKE AN APPOINTMENT FOR STENT REMOVAL WITHOUT FAIL. Prescriptions: Cefdinir [Omnicef] 300 mg PO BID #14 cap Instructions: Urinary Tract Infection in Women (ED) Forms: [facility] (Gabonese) Print Language: FRENCH
[2017-05-21 13:49] LABS: BASO # 0.1 K/uL (0.0-0.2); BASO % 0.9 % (0.0-2.0); EOS # 0.1 K/uL (0.0-0.7); EOS % 1.4 % (0.0-4.0); HEMATOCRIT 35.1 % (34.0-47.0); LYMPH # 1.3 K/uL (1.0-4.3); LYMPH % 16.5 % (20.0-40.0); MEAN CELL VOLUME 81.4 fl (81.0-99.0); MEAN CORPUSCULAR HEMOGLOBIN 25.7 pg (27.0-31.0); MEAN CORPUSCULAR HGB CONC 31.6 g/dL (33.0-37.0); MONO # 0.5 K/uL (0.0-0.8); MONO % 6.4 % (0.0-10.0); NEUT # 5.8 K/uL (1.8-7.0); NEUT % 74.8 % (50.0-75.0); RED CELL DISTRIBUTION WIDTH 16.6 % (11.5-14.5); WHITE BLOOD COUNT 7.8 K/uL (4.8-10.8)
[2017-05-21 14:00] LABS: VENOUS BLOOD GAS PCO2 49 mmHg (40-60); VENOUS BLOOD PH 7.34 (7.32-7.43)
[2017-05-21 14:21] LABS: ALB/GLOB RATIO 1.2 (1.0-2.1); ALKALINE PHOSPHATASE 65 U/L (38-126); ALT/SGPT 33 U/L (9-52); AST/SGOT 24 U/L (14-36); BILIRUBIN,TOTAL 0.5 mg/dl (0.2-1.3); BLOOD UREA NITROGEN 8 mg/dl (7-17); CALCIUM 9.1 mg/dL (8.4-10.2); CARBON DIOXIDE 22 mmol/L (22-30); CHLORIDE 105 mmol/L (98-107); GFR AFRICAN-AMERICAN > 60; GLUCOSE,RANDOM 93 mg/dL (65-105); POTASSIUM 4.2 MMOL/L (3.6-5.0); SODIUM 137 mmol/l (132-148); TOTAL PROTEIN 7.9 G/DL (6.3-8.2)
== END 2017-05-21 14:55 | disposition home or self-care (01) ==
LOC: H.ER 10:56
DX: N39.0 Urinary tract infection, site not specified (principal)

== ENCOUNTER 2017-07-08 14:13 | Emergency (ER) | payer SELFPAY ==
[2017-07-08 14:13] VITALS: BMI 24.2
[2017-07-08 14:23] VITALS: BP 131/74; PULSE 91; RESP 18; TEMP 98; O2SAT 98
--- NOTE | 2017-07-08 15:16 | ED PDOC ---
HPI: Abdomen Time Seen by Provider: 07/08/17 14:31 Chief Complaint (Nursing): Abdominal Pain Chief Complaint (Provider): Abdominal Pain History Per: Patient History/Exam Limitations: no limitations Onset/Duration Of Symptoms: Days (x 2 weeks) Current Symptoms Are (Timing): Still Present Additional Complaint(s): Ginger is a 46 year old female with a past medical history of kidney stones, who presents to the Emergency Department complaining of right sided abdominal and flank pain. Patient states he has had urinary frequency and pelvic pressure and has been treated with antibiotics. States he had lithotripsy of right ureteral stone with stent placement and was removed on June 22, 2017. Denies fever, nausea, and vomiting PMD: None Past Medical History Reviewed: Historical Data, Nursing Documentation, Vital Signs Vital Signs: Last Vital Signs Temp 98 F 07/08/17 14:21 Pulse 91 H 07/08/17 14:21 Resp 18 07/08/17 14:21 BP 131/74 07/08/17 14:21 Pulse Ox 98 07/08/17 15:29 - Medical History PMH: Anemia, Gall Bladder Disease, Kidney Stones, Chronic Kidney Disease - Surgical History Surgical History: Cholecystectomy, Endoscopy, Other surgeries: lithotripsy - Family History Family History: States: Unknown Family Hx - Home Medications Home Medications: Ambulatory Orders Medication Instructions Recorded Ibuprofen [Motrin Tab] 600 mg PO Q6H PRN 05/07/17 oxyCODONE/Acetaminophen [Percocet 1 tab PO PRN PRN 05/27/17 5/325 mg Tab] Ciprofloxacin HCl [Cipro] 500 mg PO BID #20 tab 07/08/17 Tamsulosin HCl [Flomax] 0.4 mg PO DAILY #6 cap.er.24h 07/08/17 traMADol [Ultram] 50 mg PO Q8 #10 tab 07/08/17 - Allergies Allergies/Adverse Reactions: Allergies Allergy/AdvReac Type Severity Reaction Status Date / Time No Known Allergies Allergy Verified 07/08/17 14:20 Review of Systems ROS Statement: Except As Marked, All Systems Reviewed And Found Negative Constitutional: Negative for: Fever Gastrointestinal: Positive for: Abdominal Pain (right sided), Other (right sided flank). Negative for: Nausea, Vomiting Physical Exam - Reviewed Nursing Documentation Reviewed: Yes Vital Signs Reviewed: Yes - Physical Exam Appears: Positive for: Non-toxic, No Acute Distress Head Exam: Positive for: ATRAUMATIC, NORMAL INSPECTION, NORMOCEPHALIC Skin: Positive for: Normal Color, Warm, DRY Eye Exam: Positive for: EOMI, Normal appearance, PERRL Neck: Positive for: Normal, Supple Cardiovascular/Chest: Positive for: Regular Rate, Rhythm Respiratory: Negative for: Respiratory Distress Gastrointestinal/Abdominal: Positive for: Soft. Negative for: Tenderness Back: Positive for: Normal Inspection. Negative for: L CVA Tenderness, R CVA Tenderness Extremity: Positive for: Normal ROM. Negative for: Pedal Edema, Deformity Neurologic/Psych: Positive for: Alert, Oriented - ECG O2 Sat by Pulse Oximetry: 98 (RA) Pulse Ox Interpretation: Normal Medical Decision Making Medical Decision Making: Time: 13:57 Initial Plan: - CT Abdominal and Pelvis without PO or IV Contrast - Urinalysis Scribe Attestation: Documented by Sean Giles, acting as a scribe for Micky Golden MD Provider Scribe Attestation: All medical record entries made by the Scribe were at my direction and personally dictated by me. I have reviewed the chart and agree that the record accurately reflects my personal performance of the history, physical exam, medical decision making, and the department course for this patient. I have also personally directed, reviewed, and agree with the discharge instructions and disposition. Disposition - Clinical Impression Clinical Impression: Kidney stones - Patient ED Disposition Is Patient to be Admitted: No - Disposition Referrals: Robert Hood MD [Staff Provider] - Disposition: Routine/Home Disposition Time: 17:16 Condition: FAIR Prescriptions: Ciprofloxacin HCl [Cipro] 500 mg PO BID #20 tab Tamsulosin HCl [Flomax] 0.4 mg PO DAILY #6 cap.er.24h traMADol [Ultram] 50 mg PO Q8 #10 tab Instructions: Kidney Stones (ED) Forms: [employer] (Polish) Print Language: DUTCH
[2017-07-08 15:45] LABS: RBC URINE 1 /hpf (0-3); URINE BACTERIA RARE (<OCC); URINE BILIRUBIN NEGATIVE (NEGATIVE); URINE BLOOD SMALL (NEGATIVE); URINE COLOR STRAW (YELLOW); URINE GLUCOSE (UA) NEG (Normal); URINE KETONE NEGATIVE (NEGATIVE); URINE LEUKOCYTE ESTERASE NEG Leu/uL (Negative); URINE PROTEIN NEGATIVE (NEGATIVE); URINE UROBILINOGEN 0.2-1.0 mg/dL (0.2-1.0); WBC URINE 1 /hpf (0-5)
--- NOTE | 2017-07-08 17:11 | CT ---
PROCEDURE: CT Abdomen and Pelvis without intravenous contrast HISTORY: r/o kidney stone right side COMPARISON: 04/16/2017. CT abdomen and pelvis. Summary of findings on the comparison examination: Right-sided hydroureteronephrosis extending to the distal right ureter or 6 mm stone is identified. TECHNIQUE: Unenhanced study. Neither oral nor intravenous contrast administered. Radiation dose: Total exam DLP = 354.65 mGy-cm. This CT exam was performed using one or more of the following dose reduction techniques: Automated exposure control, adjustment of the mA and/or kV according to patient size, and/or use of iterative reconstruction technique. FINDINGS: LOWER THORAX: Unremarkable. LIVER: Hepatic steatosis. No focal masses. No intrahepatic bile duct dilatation or perihepatic ascites. GALLBLADDER AND BILE DUCTS: Status post cholecystectomy. No abnormality is seen in the gallbladder fossa. PANCREAS: Unremarkable. No gross lesion or ductal dilatation. SPLEEN: Unremarkable. ADRENALS: Unremarkable. No mass. KIDNEYS AND URETERS: Upper tract calculi bilaterally too numerous to count the preponderance of which are 3 mm or less. No evidence to suggest hydronephrosis or hydroureter. VASCULATURE: Unremarkable. No aortic aneurysm. BOWEL: Unremarkable. No obstruction. No gross mural thickening. Constipation without fecal impaction or obstruction. APPENDIX: Unremarkable. Normal appendix. PERITONEUM: Unremarkable. No free fluid. No free air. LYMPH NODES: Unremarkable. No enlarged lymph nodes. BLADDER: Unremarkable. REPRODUCTIVE: Enlarged, retroverted uterus unchanged compared to the prior study. BONES: No acute fracture. OTHER FINDINGS: None. IMPRESSION: Upper tract calculus disease bilaterally without evidence of hydronephrosis or hydroureter. No bladder calculi identified. Additional benign and/or incidental findings described above.
== END 2017-07-08 17:24 | disposition home or self-care (01) ==
LOC: H.ER 14:13
DX: N20.0 Calculus of kidney (principal)

== ENCOUNTER 2017-09-01 12:52 | Emergency (ER) | payer OTHER, SELFPAY ==
[2017-09-01 12:52] VITALS: BMI 24.2
[2017-09-01 12:58] VITALS: RESP 18
--- NOTE | 2017-09-01 13:51 | CT ---
PROCEDURE: CT HEAD WITHOUT CONTRAST. HISTORY: acute onset of headache COMPARISON: CT head dated 09/16/2016. TECHNIQUE: Axial computed tomography images were obtained through the head/brain without intravenous contrast. Radiation dose: Total exam DLP = 826.1 mGy-cm. This CT exam was performed using one or more of the following dose reduction techniques: Automated exposure control, adjustment of the mA and/or kV according to patient size, and/or use of iterative reconstruction technique. FINDINGS: HEMORRHAGE: No intracranial hemorrhage. BRAIN: No mass effect or edema. No atrophy or chronic microvascular ischemic changes. VENTRICLES: Unremarkable. No hydrocephalus. CALVARIUM: Unremarkable. PARANASAL SINUSES: Unremarkable as visualized. No significant inflammatory changes. MASTOID AIR CELLS: Unremarkable as visualized. No inflammatory changes. OTHER FINDINGS: None. IMPRESSION: No acute intracranial pathology.
[2017-09-01 16:40] VITALS: BP 139/85; PULSE 82; TEMP 98.3; O2SAT 100
[2017-09-01 17:00] LABS: HEMOGLOBIN 11.1 g/dL (12.0-16.0); MEAN CELL VOLUME 77.5 fl (81.0-99.0); MEAN CORPUSCULAR HEMOGLOBIN 24.3 pg (27.0-31.0); MEAN CORPUSCULAR HGB CONC 31.3 g/dL (33.0-37.0); RBC 4.56 Mil/uL (3.80-5.20); RED CELL DISTRIBUTION WIDTH 17.6 % (11.5-14.5)
[2017-09-01 17:02] LABS: WHITE BLOOD COUNT 12.7 K/uL (4.8-10.8)
[2017-09-01 17:10] LABS: ALBUMIN 4.6 g/dL (3.5-5.0); ALT/SGPT 22 U/L (9-52); AST/SGOT 30 U/L (14-36); BLOOD UREA NITROGEN 12 mg/dl (7-17); CALCIUM 9.4 mg/dL (8.4-10.2); GFR AFRICAN-AMERICAN > 60; GFR NON-AFRICAN AMERICAN > 60
[2017-09-01 17:11] LABS: INR 1.2 (0.9-1.2); PARTIAL THROMBOPLASTIN TIME 40.5 Seconds (25.6-37.1); PROTHROMBIN TIME 13.1 Seconds (9.8-13.1)
[2017-09-01 17:36] LABS: ALB/GLOB RATIO 1.1 (1.0-2.1)
[2017-09-01] MEDS ORDERED: Morphine 4 MG/ML VIAL ONE (17:56)
[2017-09-01 19:19] LABS: FLUID TYPE SPINAL FLUID
[2017-09-01 19:38] LABS: CSF APPEARANCE CLEAR/COLORLESS (CLEAR)
[2017-09-01 19:48] LABS: CSF VOLUME 1 mL (0-1)
[2017-09-01 20:05] LABS: CSF APPEARANCE CLEAR/COLORLESS (CLEAR); CSF VOLUME 1 mL (0-1)
--- NOTE | 2017-09-01 20:34 | ED PDOC ---
HPI: Headache <AndriaKirkhair Mccann - Last Filed: 09/02/17 09:53> Chief Complaint (Provider): Headache, acute onset History Per: Patient History/Exam Limitations: no limitations Onset/Duration Of Symptoms: Mins (45 minutes ) Current Symptoms Are (Timing): Still Present Severity: Severe Pain Scale Rating Of: 10 Front/Back Head: 1 - Pain, sharp, pressure Preceeding Symptoms: None Associated Symptoms: Photophobia, Nausea Additional Complaint(s): P47 yo female with history of migraines presents to the ER with headache. PT states this is the worst headache of her life and it began suddenly approx 45 minutes [employer]. Pt states this is very different than previous migraines. <Magalie Brown - Last Filed: 09/02/17 15:19> Time Seen by Provider: 09/01/17 12:59 Chief Complaint (Nursing): Headache Past Medical History Vital Signs: Last Vital Signs Temp 98.3 F 09/01/17 16:39 Pulse 82 09/01/17 16:39 Resp 18 09/01/17 16:39 BP 139/85 09/01/17 16:39 Pulse Ox 100 09/01/17 20:36 <AndriaKirkhair A - Last Filed: 09/02/17 09:53> Reviewed: Historical Data, Nursing Documentation, Vital Signs Vital Signs: Last Vital Signs Temp 98.3 F 09/01/17 16:39 Pulse 82 09/01/17 16:39 Resp 18 09/01/17 16:39 BP 139/85 09/01/17 16:39 Pulse Ox 100 09/01/17 16:39 - Medical History PMH: Anemia, Gall Bladder Disease, Kidney Stones, Migraine, Chronic Kidney Disease - Surgical History Surgical History: Cholecystectomy, Endoscopy, - Family History Family History: States: Unknown Family Hx - Living Arrangements Living Arrangements: With Family - Social History Current smoker - smoking cessation education provided: No Alcohol: Occasional Drugs: Denies <Magalie Brown - Last Filed: 09/02/17 15:19> - Home Medications Home Medications: Ambulatory Orders Medication Instructions Recorded Ibuprofen [Motrin Tab] 600 mg PO Q6H PRN 05/07/17 oxyCODONE/Acetaminophen [Percocet 1 tab PO PRN PRN 05/27/17 5/325 mg Tab] Ciprofloxacin HCl [Cipro] 500 mg PO BID #20 tab 07/08/17 Tamsulosin HCl [Flomax] 0.4 mg PO DAILY #6 cap.er.24h 07/08/17 traMADol [Ultram] 50 mg PO Q8 #10 tab 07/08/17 oxyCODONE/Acetaminophen [Percocet 1 ea PO Q6H PRN #10 tab 09/01/17 5/325 mg Tab] - Allergies Allergies/Adverse Reactions: Allergies Allergy/AdvReac Type Severity Reaction Status Date / Time No Known Allergies Allergy Verified 07/08/17 14:20 Review of Systems ROS Statement: Except As Marked, All Systems Reviewed And Found Negative Constitutional: Negative for: Fever, Chills Gastrointestinal: Positive for: Nausea Neurological: Positive for: Headache <Magalie Brown - Last Filed: 09/02/17 15:19> Physical Exam - Reviewed Nursing Documentation Reviewed: Yes Vital Signs Reviewed: Yes - Physical Exam Appears: Positive for: Well, Non-toxic, No Acute Distress Head Exam: Positive for: ATRAUMATIC, NORMAL INSPECTION, NORMOCEPHALIC Skin: Positive for: Normal Color, Warm, DRY Eye Exam: Positive for: EOMI, Normal appearance, PERRL ENT: Positive for: Normal ENT Inspection Neck: Positive for: Normal, Painless ROM Cardiovascular/Chest: Positive for: Regular Rate, Rhythm Respiratory: Positive for: Normal Breath Sounds. Negative for: Accessory Muscle Use, Respiratory Distress Gastrointestinal/Abdominal: Negative for: Tenderness Back: Positive for: Normal Inspection Extremity: Positive for: Normal ROM Neurologic/Psych: Positive for: Alert, Oriented <Magalie Brown - Last Filed: 09/02/17 15:19> - Laboratory Results Result Diagrams: 09/01/17 16:50 09/01/17 16:50 <Kristen Ayers - Last Filed: 09/02/17 09:53> - Laboratory Results Result Diagrams: 09/01/17 16:50 09/01/17 16:50 - ECG O2 Sat by Pulse Oximetry: 100 <KevinMagalie Breaux - Last Filed: 09/02/17 15:19> Medical Decision Making Medical Decision Making: Ct normal. Discussed LP with patient including risk and benefits. Pt demonstrates understanding and would like it completed to be sure there is no subarachnoid hemorrhage that was too small to detect on CT. No RBC in tube #4 and #1 of LP which was performed by Dr. Ayers. <Magalie Brown - Last Filed: 09/02/17 15:19> Procedures - Time-Out Type of Procedure: Lumbar puncture Site of Procedure: L3-4 Correct Patient: Yes Correct Procedure: Yes Correct Site Marked: Yes X-Ray Marked: Yes Medication Recon: Yes Physician Name: Andria <Kristen Ayers - Last Filed: 09/02/17 09:53> Disposition <Kristen Ayers - Last Filed: 09/02/17 09:53> - Patient ED Disposition Is Patient to be Admitted: No Counseled Patient/Family Regarding: Diagnosis, Need For Followup - Disposition Disposition: Routine/Home Disposition Time: 20:33 <KevinMagalie J - Last Filed: 09/02/17 15:19> - Clinical Impression Clinical Impression: Acute headache - Disposition Condition: GOOD Prescriptions: oxyCODONE/Acetaminophen [Percocet 5/325 mg Tab] 1 ea PO Q6H PRN #10 tab PRN Reason: Pain, Severe (8-10) Instructions: Acute Headache (ED) Forms: [employer] (Estonian) Lumbar Puncture - Time Out Time Out: Side verified, Site verified, Patient ID confirmed, Sterile procedures obs. - Procedure Lumbar Puncture: LP - Consent obtained Consent obtained: Emergent consent implied - Performed by Performed by: Attending Physician - Indications Indication(s): Suspect subarc.hem/neg CT - Contraindications Contraindications: None - Patient Position Patient position: Sitting - Local Anesthetic Local Anesthetic: Lidocaine 1% Location: L3/L4 Needle size gauge: 20 - Fluid Appearance Fluid Appearance: Clear - Post-procedure Post-procedure: No leak/bld from LP site, Dressing applied, Patient laid flat, Neurovascular status nml - CSF Studies CSF Studies: Cell count/diff, Glucose, Protein, Gram stain, culture/sensitivity - Complications Complications: None - Patient tolerated procedure Patient tolerated procedure: Well <Kristen Ayers - Last Filed: 09/02/17 09:53>
[2017-09-01 21:31] LABS: CSF MONO/MACROPHAGE 1 % (0-0)
== END 2017-09-01 20:55 | disposition home or self-care (01) ==
LOC: H.ER 12:52
DX: R51 Headache (principal); Z87.442 Personal history of urinary calculi; N18.9 Chronic kidney disease, unspecified
CPT/HCPCS: 62270; 70450; 80053; 81025; 82945; 84157; 85027; 85610; 85730; 87070; 89050; 96374; 99285; J2270; J2405

== ENCOUNTER 2018-11-23 15:37 | Emergency (ER) | payer OTHER, SELFPAY ==
[2018-11-23 15:53] VITALS: BMI 30.2
[2018-11-23 15:54] VITALS: RESP 18
[2018-11-23 16:05] VITALS: PULSE 78
--- NOTE | 2018-11-23 17:22 | ED PDOC ---
HPI: Influenza Time Seen by Provider: 11/23/18 16:42 Chief Complaint: Cough, Cold, Congestion Past Medical History Vital Signs: Last Vital Signs Temp 98.5 F 11/23/18 16:03 Pulse 78 11/23/18 16:03 Resp 18 11/23/18 16:03 BP 130/73 11/23/18 16:03 Pulse Ox 99 11/23/18 16:03 - Medical History PMH: Anemia, Gall Bladder Disease, Kidney Stones, Migraine, Chronic Kidney Disease - Surgical History Surgical History: Cholecystectomy, Endoscopy, - Family History Family History: States: Unknown Family Hx - Home Medications Home Medications: Ambulatory Orders Medication Instructions Recorded Ibuprofen [Motrin Tab] 600 mg PO Q6H PRN 05/07/17 oxyCODONE/Acetaminophen [Percocet 1 tab PO PRN PRN 05/27/17 5/325 mg Tab] Ciprofloxacin HCl [Cipro] 500 mg PO BID #20 tab 07/08/17 Tamsulosin HCl [Flomax] 0.4 mg PO DAILY #6 cap.er.24h 07/08/17 traMADol [Ultram] 50 mg PO Q8 #10 tab 07/08/17 oxyCODONE/Acetaminophen [Percocet 1 ea PO Q6H PRN #10 tab 09/01/17 5/325 mg Tab] - Allergies Allergies/Adverse Reactions: Allergies Allergy/AdvReac Type Severity Reaction Status Date / Time No Known Allergies Allergy Verified 07/08/17 14:20 - ECG O2 Sat by Pulse Oximetry: 99 Disposition - Disposition
--- NOTE | 2018-11-23 17:24 | ED PDOC ---
HPI: CCC, URI, Sore Throat Time Seen by Provider: 11/23/18 16:42 Chief Complaint (Nursing): Cough, Cold, Congestion Chief Complaint (Provider): Cough History Per: Patient History/Exam Limitations: no limitations, clinical condition Onset/Duration Of Symptoms: Days Current Symptoms Are (Timing): Still Present Additional Complaint(s): 48yo female with no significant history comes in complaining of cough x 3 days. Also reports mild throat irritation and states the cough is intermittently productive with yellow sputum. She reports pleuritic chest pain and upper back pain due to the cough, but denies any shortness of breath. No complaints of ear pain, vomiting or diarrhea. Past Medical History Reviewed: Historical Data, Nursing Documentation, Vital Signs Vital Signs: Last Vital Signs Temp 98.5 F 11/23/18 16:03 Pulse 78 11/23/18 16:03 Resp 18 11/23/18 16:03 BP 130/73 11/23/18 16:03 Pulse Ox 99 11/23/18 16:03 - Medical History PMH: Anemia, Gall Bladder Disease, Kidney Stones, Migraine, Chronic Kidney Disease - Surgical History Surgical History: Cholecystectomy, Endoscopy, - Family History Family History: States: Unknown Family Hx - Home Medications Home Medications: Ambulatory Orders Medication Instructions Recorded Ibuprofen [Motrin Tab] 600 mg PO Q6H PRN 05/07/17 oxyCODONE/Acetaminophen [Percocet 1 tab PO PRN PRN 05/27/17 5/325 mg Tab] Ciprofloxacin HCl [Cipro] 500 mg PO BID #20 tab 07/08/17 Tamsulosin HCl [Flomax] 0.4 mg PO DAILY #6 cap.er.24h 07/08/17 traMADol [Ultram] 50 mg PO Q8 #10 tab 07/08/17 oxyCODONE/Acetaminophen [Percocet 1 ea PO Q6H PRN #10 tab 09/01/17 5/325 mg Tab] Benzonatate [Tessalon Perles] 100 mg PO BID PRN 7 Days sgl 11/23/18 Ibuprofen [Motrin Tab] 600 mg PO Q6 PRN 7 Days tab 11/23/18 - Allergies Allergies/Adverse Reactions: Allergies Allergy/AdvReac Type Severity Reaction Status Date / Time No Known Allergies Allergy Verified 07/08/17 14:20 Review of Systems ROS Statement: Except As Marked, All Systems Reviewed And Found Negative Constitutional: Negative for: Fever, Chills ENT: Positive for: Throat Pain. Negative for: Ear Pain, Nose Discharge Respiratory: Positive for: Cough, Pleuritic Pain, Sputum (intermittent) Gastrointestinal: Negative for: Nausea, Vomiting Physical Exam - Reviewed Nursing Documentation Reviewed: Yes Vital Signs Reviewed: Yes - Physical Exam Appears: Positive for: Non-toxic, No Acute Distress Head Exam: Positive for: ATRAUMATIC, NORMAL INSPECTION, NORMOCEPHALIC Skin: Positive for: Normal Color Eye Exam: Positive for: EOMI, PERRL ENT: Negative for: Pharyngeal Erythema, Tonsillar Exudate, Tonsillar Swelling Neck: Positive for: Painless ROM, Supple Cardiovascular/Chest: Positive for: Regular Rate, Rhythm, Murmur (2/6 systolic murmur left sternal border) Respiratory: Positive for: Normal Breath Sounds. Negative for: Rales, Rhonchi, Wheezing Neurological/Psych: Positive for: Awake, Alert - ECG O2 Sat by Pulse Oximetry: 99 (RA) Pulse Ox Interpretation: Normal Medical Decision Making Medical Decision Makinyo female with cough, pleuritic pain Plan: Patient reassured symptoms are consistent with URI; and educated on the natural course of URI Patient informed of symptomatic care, instructed to take Ibuprofen and Tylenol as needed for pain. Patient informed of murmur finding during exam and instructed to follow up with PMD for further evaluation. Scribe Attestation: Documented by Regina Lucio acting as a scribe for DEBBI Vaca. Provider Scribe Attestation: All medical record entries made by the Scribe were at my direction and personally dictated by me. I have reviewed the chart and agree that the record accurately reflects my personal performance of the history, physical exam, medical decision making, and the department course for this patient. I have also personally directed, reviewed, and agree with the discharge instructions and disposition. Disposition - Clinical Impression Clinical Impression: URI (upper respiratory infection) - Disposition Referrals: [facility] [Outside] Disposition: Routine/Home Disposition Time: 17:25 Condition: STABLE Additional Instructions: Follow up with your primary care doctor to discuss heart murmur. Take Tessalon for cough and Ibuprofen or Tylenol for pain. Return to ER if you develop shortness of breath. Prescriptions: Benzonatate [Tessalon Perles] 100 mg PO BID PRN 7 Days sgl PRN Reason: Cough Ibuprofen [Motrin Tab] 600 mg PO Q6 PRN 7 Days tab PRN Reason: Pain, Moderate (4-7) Instructions: Viral Upper Respiratory Infection, Adult (DC) Forms: [facility] (Khmer), [facility] (Faroese) Print Language: YORUBA
[2018-11-23 17:46] VITALS: BP 122/78; TEMP 98
[2018-11-23 18:12] VITALS: O2SAT 99
== END 2018-11-23 17:44 | disposition home or self-care (01) ==
LOC: H.ER 15:37
DX: J06.9 Acute upper respiratory infection, unspecified (principal)